=== PATIENT | female | born 1950 | race Caucasian/White ===

== ENCOUNTER 2023-07-26 04:33 | Inpatient (IN) | payer OTHER, SELFPAY ==
[2023-07-25 22:25] VITALS: BP 176/73
[2023-07-25 22:26] VITALS: BMI 17.3
[2023-07-25 22:29] VITALS: BP 176/73
[2023-07-25 23:00] VITALS: BP 172/76
--- NOTE | 2023-07-25 23:29 | ED.GENMED ---
History of Present Illness
General
Chief Complaint: Fall
Source: patient
Exam Limitations: none
Time Seen by Provider: 07/25/23 23:20
Travel History
Have you had any contact with someone who has COVID-19?: No
Do you have any symptoms of coronavirus? Fever > 100 degrees, chills, cough, shortness of breath, sore throat, loss of taste or smell, muscle aches, or headache?: No
History of Present Illness
History of Present Illness:
This is a 72 year old female that is brought in by ambulance with c/o fall. States that she was walking with her walker and she lost her balance states that she fell backward hitting her left hip. States that she did hit her head but there was no
LOC. States that she has pain in the left hip. Denies any fever, chills, chest pain, SOB, abd pain, nausea, vomiting, diarrhea, headache, dizziness. or urinary burning.
Past History
Past History
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
ED Past Surgical History: Cholecystectomy and Other (Colostomy to Ileostomy)
Social History
Tobacco: Non-smoker
Alcohol: None
Drug: None
Personal:
Living: with family
Review of Systems
Review of Systems
All Other Systems: ROS reviewed and negative except as documented in HPI and ROS
Constitutional: Reports no symptoms; Denies fever or chills
EENT: Reports no symptoms
Respiratory: Reports no symptoms; Denies cough or trouble breathing
Cardiac: Reports no symptoms; Denies chest pain
ABD/GI: Reports no symptoms; Denies abdominal pain, nausea, vomiting or diarrhea
: Reports no symptoms; Denies dysuria, frequency or urgency
Musculoskeletal: Reports joint pain (Left hip pain)
Skin: Reports other (abrasion left elbow)
Neurological: Reports no symptoms; Denies dizzy or headache
Psychiatric: Reports no symptoms
Phy Exam
General Physical Exam
General Presentation: mild distress
General age: appears stated age
General Skin: warm and dry
General Habitus: elderly
General Mental: alert
General Hydration: dry mucous membranes
ENT Exam
ENT Exam: TM's normal, pharynx normal and neck supple
Eye Exam
Eye Exam: EOMI
Cardiovascular Exam
Cardiovascular Exam: regular rate/rhythm, no edema and normal peripheral pulses
Pulmonary Exam
Pulmonary Exam: lungs clear, no respiratory distress, no rales, chest non tender, no crackles, no rhonchi, no wheezing and no cough
Gastrointestinal Exam
Gastrointestinal Exam: normal bowel sounds, non tender, soft, no organomegaly, no pulsatile mass and non distended
External Findings: ileostomy
Musculoskeletal Exam
Musculoskeletal Exam: no edema and other (Left leg shortened and externally rotated. Discomfort with palpation. deformity noted. negative for any cervical neck tenderness or shoulder discomfort. Patient able to flex left elbow without discomfort. )
Skin Exam
Skin Exam: normal color, warm/dry, no rash, no petechia and other (Abrasion to the left elbow)
Psychiatric Exam
Psychiatric Exam: normal mood/affect
Course
Orders/Labs/Results
Orders:
Orders
07/25/23 22:39
CT Head W/o Iv Contrast Urgent
Comment:
Reason For Exam: head strike and on thinners
07/25/23 23:28
Complete Blood Count/With Diff Urgent
Comprehensive Metabolic Panel Urgent
Morphine Sulfate 2 mg IV NOW STA
07/25/23 23:35
Prothrombin Time Urgent
07/26/23 00:00
CR Hip - LT w/wo Pel 2-3 Vw* Urgent
Reason For Exam: fall, left hip pain
Include a pelvis x-ray?: Yes
07/26/23 00:40
Consult Orthopedic [ORTHOPEDIC CONSULT] Urgent
Consulting Provider: Liberty Ortega
Was physician already notified: Yes
Abnormal Lab Results
07/26/23
00:37
WBC 11.7 H 10^3/uL
(4.8-10.8)
RBC 3.42 L 10^6/uL
(4.20-5.40)
Hgb 10.6 L g/dL
(12.0-16.0)
Hct 31.3 L %
(37.0-47.0)
RDW 14.7 H %
(11.5-14.5)
Abs Immat Gran (auto) 0.1 H 10^3/uL
(0-0.05)
Absolute Neuts (auto) 10.8 H 10^3/uL
(1.4-6.5)
Absolute Lymphs (auto) 0.5 L 10^3/uL
(1.2-3.4)
Neutrophils % 92.0 H %
(42.2-75.2)
Lymphocytes % 4.4 L %
(20.5-51.1)
PT 21.8 H Sec
(11.4-14.6)
Potassium 3.2 L mmol/L
(3.5-5.1)
BUN 26 H mg/dl
(7-17)
Glucose 144 H mg/dl
(70-99)
Total Protein 6.0 L g/dl
(6.3-8.2)
Albumin 3.0 L g/dl
(3.5-5.0)
07/26/23 00:37
07/26/23 00:37
Leukocytosis, H/H low. PT 21.8 with INR 1.92, Dehydration. Glucose nonfasting. Total protein low. Albumin low.
Vital Signs
Initial and Last Documented VS:
Initial Vital Signs
BP
176/73
07/25/23 22:25
Last Documented Vital Signs
Temp Pulse Resp BP Pulse Ox
98.6 F 82 21 176/79 97
07/25/23 22:29 07/26/23 01:15 07/26/23 01:15 07/26/23 01:00 07/26/23 01:15
MDM/Problems Addressed
Differential Diagnosis Includes:
Left hip fracture,
MDM/Problems Addressed:
This is a 72 year old female that comes in with c/o fall. States that she lost her balance and fell hitting her hip and head. Denies any LOC.
Will get labs, CT head and x-ray left hip. Will medicate for pain.
Back into see patient and family. Explained that the patient has a left hip fracture and will be admitted. Will sent message to Hospitalist and Orthopedics.
Chronic conditions affecting care: Other (RA, history of CVA on Coumadin)
Acute Exacerbation and/or Progression of Chronic Illness:
NA
*Radiology
Radiology exam reviewed: preliminary read by ED provider (X-ray left hip- Fracture left hip. ), radiology read reviewed (CT head, night Hawk- No acute intracranial abnormality by CT. No acute intracranial hemorhage, evidence of acute large
territorial infarction, mass or mass effect. No identified calvarial fracture. Large old encephalomalacic infarction of the right frontotemporoparietal cerebrum. Corresponding) and other (Ct head cont- Ex vacuo dilation of right lateral ventricle.
Right MCA stenting noted. )
*Pulse Oximetry
Patient hypoxic: no
*Drying Oven Tender Interpretation
Rate: normal
Heart Rate: 91
Rhythm: sinus
*Critical Care Note
Total Time (30-74mins, 75-104mins- exclusive of procedures): Not Applicable
ED Attending Note
-
Portions of this chart may have been created with voice recognition software.� Occasional wrong word or��sound alike� substitutions may have occurred due to the inherent limitations of voice recognition software.
Discharge Plan
Departure
Patient Disposition: Admit
Date of Disposition: 07/26/23
Time of Disposition: 00:40
Admit to: Med/Surg
Presentation/result/management discussed w/ accepting MD/DO: Hospitalist
Patient with high blood pressure during this ER visit?: Yes
Condition: Good
Covid-19: Not Applicable
Discharge Problem:
Closed left hip fracture
Prescriptions:
No Action
acetaminophen [Tylenol Extra Strength] 500 MG tablet
1,000 mg PO HSPRN PRN (Reason: mild pain)
tamsulosin 0.4 MG capsule
0.4 mg PO [id number]
levothyroxine 125 MCG tablet
125 mcg PO DAILY
ascorbic acid (vitamin C) [Vitamin C] 500 MG tablet,chewable
500 mg PO DAILY
calcium carbonate 500 MG/5 ML suspension
500 mg PO DAILY
Referrals:
Henrique Johnson MD [Family Provider] -
Interventions
Interventions:
*Risk Screen - Suicide Last Done: 07/25/23 22:32
*General Assessment Last Done: 07/25/23 22:31
*Neglect/Abuse Screening Last Done: 07/25/23 22:32
ED- Fall Risk Assessment Last Done: 07/25/23 22:33
*ED COVID-19 Vaccine History Last Done: 07/25/23 22:31
ED-Musculoskeletal Assessment Last Done: 07/25/23 22:33
ED- Neurological Assessment Last Done: 07/25/23 22:33
ED-Skin Assessment Last Done: 07/25/23 22:33
[2023-07-26] VITALS (10 sets, daily range): BP systolic 124–179; BP diastolic 69–89; BMI 16.3
[2023-07-26 00:56] LABS: % Basophils 0.3 % (0-2); % Eosinophils 0.3 % (0-6); % Immature Granulocytes 0.4 % (0-0.5); % Lymphocytes 4.4 % (20.5-51.1); % Monocytes 2.6 % (1.7-9.3); Absolute Immature Granulocytes 0.1 10^3/uL (0-0.05); Absolute Lymphocytes 0.5 10^3/uL (1.2-3.4); Absolute Monocytes 0.3 10^3/uL (0.1-0.6); Absolute Neutrophils 10.8 10^3/uL (1.4-6.5); Hematocrit 31.3 % (37.0-47.0); Hemoglobin 10.6 g/dL (12.0-16.0); Mean Corp Hgb Conc. 33.9 g/dL (33.0-37.0); Mean Corpuscular Volume 91.5 fL (81.0-99.0); Mean Platelet Volume 9.3 fL (7.4-10.4); Nucleated Red Blood Cells % 0 %; Platelet Count 343 10^3/uL (130-400); Red Blood Cell Count 3.42 10^6/uL (4.20-5.40); Red Cell Dist. Width 14.7 % (11.5-14.5); White Blood Cell Count 11.7 10^3/uL (4.8-10.8)
[2023-07-26 01:08] LABS: INR 1.92; PT 21.8 Sec (11.4-14.6)
[2023-07-26 01:12] LABS: ALT (SGPT) 16 U/L (0-35); AST (SGOT) 29 U/L (14-36); Alkaline Phosphatase 126 U/L (38-126); Blood Urea Nitrogen 26 mg/dl (7-17); Carbon Dioxide 29 mmol/L (22-30); Chloride 101 mmol/L (98-107); Estimated Creatinine Clearance 45 ml/min; Glucose 144 mg/dl (70-99); Potassium 3.2 mmol/L (3.5-5.1); Sodium 137 mmol/L (135-145); Total Bilirubin 0.7 mg/dl (0.2-1.3); eGFR > 60.00
[2023-07-26] MEDS: MORPHINE SULFATE 2 MG IV (01:16)
--- NOTE | 2023-07-26 04:21 | HPS.HSE ---
Family Physician
-
Family Physician: Henrique Johnson
Chief Complaint
-
fall, left hip pain
History of Present Illness
The patient is a 72 yo woman with PMH significant for remote CVA with contractures and left sided weakness, who was walking with her walker and lost balance and fell backwards, hitting her left hip that resulted in left hip fracture. She hit her
head as well, without LOC. She denies any pulmonary disease. She takes
Medical History
Past Medical History
Past Medical History: Reports CVA (hemiplegia and hemiparesis affecting left non-dominant side), Hypercholesterolemia, Hypothyroidism and Other (Antiphospholipid antibody on long-term AC with Coumadin, RA multiple sites affected)
Past Surgical History: Reports Other (right MCA stenting)
Social History
Tobacco: Non-smoker
Alcohol: None
Drug: None
Family History
Family History: Not pertinent
Allergies / Home Medications
Allergies reflects when Allergies were last updated in [facility].
Home Medications with original date entered in [facility]
Allergy/Medication List:
Allergies
Allergy/AdvReac Type Severity Reaction Status Date / Time
No Known Allergies Allergy Verified 09/16/20 11:14
Home Medications
acetaminophen 500 mg tablet (Tylenol Extra Strength) 1,000 mg PO HSPRN PRN mild pain 09/16/20
ascorbic acid (vitamin C) 500 mg chewable tablet (Vitamin C) 500 mg PO DAILY 09/16/20
calcium carbonate 500 mg/5 mL calcium (1,250 mg/5 mL) oral suspension 500 mg PO DAILY 09/16/20
levothyroxine 125 mcg tablet 125 mcg PO DAILY 09/16/20
tamsulosin 0.4 mg capsule 0.4 mg PO [id number] 09/16/20
Full Current Med rec is pending at this time
Review of Systems
-
A 12 point ROS was completed and negative except as noted: Yes
Physical Exam
Vital Signs
Vital Signs
Temp Pulse Resp BP Pulse Ox
98.6 F 82 21 176/79 97
07/25/23 22:29 07/26/23 01:15 07/26/23 01:15 07/26/23 01:00 07/26/23 01:15
Physical Exam
General: No Apparent Distress, Comfortable, Conversant and Appears Chronically Ill
HEENT: NormoCephalic, Anicteric and Moist mucous membranes
Respiratory: Clear
Cardiac: S1/S2 and Regular Rhythm
GI: Soft, Non Tender and Non Distended
Musculoskeletal: No Clubbing, No Cyanosis and No Edema
Skin: Warm and Dry
Neuro: AO x 3 and Nonfocal/grossly intact
Laboratory Results
-
07/26/23 00:37
07/26/23 00:37
Laboratory Results
PT 21.8 Sec (11.4-14.6) H 07/26/23 00:37
INR 1.92 07/26/23 00:37
Total Bilirubin 0.7 mg/dl (0.2-1.3) 07/26/23 00:37
AST 29 U/L (14-36) 07/26/23 00:37
ALT 16 U/L (0-35) 07/26/23 00:37
Alkaline Phosphatase 126 U/L (38-126) 07/26/23 00:37
Data Reviewed
-
CT Scan: Report Reviewed by me (CT head NAD)
Impression/Plan
-
IMPRESSION:
#Left hip fracture, left hip pain
-pt ambulates with walker
-bedrest for now
-NPO
-Ortho consulted
-check EKG
-pain management prn
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
-stable , no acute bleed nor stroke
#Antiphospholipid antibody
-Coumadin on hold pending OR
-repeat INR in am
#She will require med rec in the am
DNR per discussion with the patient
DVT proph-holding anticoagulation for likely surgery in the am
[2023-07-26] MEDS: NSS 1000 IV ×2 (05:52→16:02)
--- NOTE | 2023-07-26 06:02 | PTCARENOTE ---
Pt received from ED via stretcher. Pulled over to bed x3 without incident. Telemetry = SR. Oriented to surroundings and plan of care discussed. Admission and assessment completed. L elbow with abrasion, cleansed and silicone border foam
applied. Sacrum/buttocks reddened (blanchable). Turned for comfort and static overlay mattress inflated. R calf with large mass, pt reports recently drained and filled back up. [employer] covering house contacted regarding application of SCDs, order
changed to venous foot pumps. Purewick in place. L sided weakness/hand contracture present from previous CVA. Reports pain as tolerable at present. Call li within reach. Will continue to closely monitor.
[2023-07-26 06:21] LABS: INR 1.92; PT 21.8 Sec (11.4-14.6)
--- NOTE | 2023-07-26 06:42 | CON.ORTHO ---
Documented by User: Jese Garcia PA-C 07/26/23 07:24
Consultation
-
Date/Time Consultation Requested: 07/26/2023 @ 5:20 AM
Date/Time Consultation Performed: 07/26/2023 @ 6:15 AM
Requesting Provider: Dr. Tiny Celestin DO
Performing Provider: Jese Garcia PA-C for Dr. Liberty Ortega
Reason for Consultation: Left Hip Fracture
Consultation - Orthopedics
History
HPI: The patient is a 72-year-old female with a past medical history significant for remote CVA in 2010 with contractures and left-sided weakness, Antiphospholipid antibody on long-term AC with Coumadin (last dose yesterday evening 07/25), and
recently diagnosed bilateral breast cancer, who presents to [facility] Emergency Department with left hip pain. Patient reports that she was walking with her walker to go to the bathroom around 9 PM yesterday evening and unfortunately lost
her balance and fell backwards landing on her left hip. She reports immediate onset of left hip pain and was unable to get up from the floor. She reports that she did hit her head, but denies any LOC or prodrome. Patient was transferred to ED by
EMS. X-rays were obtained, revealing a left hip fracture. Currently, she is resting in bed and does report some mild pain to the left hip. She has pain with movement. She denies any pain elsewhere. She denies any other injuries. She denies any
loss of consciousness from the fall. Patient lives at home with her in a two-story home.
PAST MEDICAL HISTORY: CVA (hemiplegia and hemiparesis affecting left nondominant side), hypercholesterolemia, hypothyroidism, antiphospholipid antibody on long-term AC with Coumadin, RA (multiple sites affected).
PAST SURGICAL HISTORY: Right MCA stenting, GI (Ostomy).
SOCIAL HISTORY: Denies any tobacco use, alcohol use, or recreational/illicit drug use. Lives at home with her in a two-story home. Patient and her report that she is fully ambulatory, however does occasionally utilize a walker.
FAMILY HISTORY: Non-contributory.
REVIEW OF SYSTEMS: 12-point review of systems obtained and negative except those mentioned in the HPI.
Allergies / Home Medications
Allergy/AdvReac Type Severity Reaction Status Date / Time
No Known Allergies Allergy Verified 09/16/20 11:14
Medication Instructions Recorded
acetaminophen 500 mg tablet 1,000 mg PO HSPRN PRN mild pain 09/16/20
(Tylenol Extra Strength)
ascorbic acid (vitamin C) 500 mg 500 mg PO DAILY 09/16/20
chewable tablet (Vitamin C)
calcium carbonate 500 mg/5 mL 500 mg PO DAILY 09/16/20
calcium (1,250 mg/5 mL) oral
suspension
levothyroxine 125 mcg tablet 125 mcg PO DAILY 09/16/20
tamsulosin 0.4 mg capsule 0.4 mg PO [id number] 09/16/20
Vital Signs / Lab Results
Temp Pulse Resp BP Pulse Ox
97.6 F 80 16 179/89 99
07/26/23 05:39 07/26/23 05:39 07/26/23 05:39 07/26/23 05:39 07/26/23 06:24
07/26/23 00:37
07/26/23 00:37
RADIOGRAPHIC FINDINGS:
CR Hip - LT w/wo Pel 2-3 Vw was obtained at [facility] on 07/26/2023 and was made available for my review. No radiologist report is yet available. I note a left intertrochanteric hip fracture.
PHYSICAL EXAM:
General: Well-developed, well-nourished female in no acute distress. AAOx3.
HEENT: NCAT, sclera anicteric, normal conversational hearing.
HEART: No JVD. No LE edema.
Lungs: Normal work of breathing on room air.
MSK: Focused examination of the left lower extremity reveals leg shortened and externally rotated. Positive logroll. Positive tenderness to palpation over the left hip. Range of motion deferred secondary to known fracture. Able to plantarflex
and dorsiflex the left ankle. Patient is able to wiggle toes. Sensation is intact to light touch. Patient is neurovascularly intact distally.
Assessment / Plan
ASSESSMENT: 72-year-old female with a left intertrochanteric hip fracture.
PLAN: Unfortunately, the patient has sustained a left intertrochanteric hip fracture following a mechanical fall yesterday evening. We discussed the treatment options including both non-operative and operative approaches. After thorough discussion,
shared decision is to proceed with surgical intervention with a left hip gamma nail. The risks, benefits, potential complications, and expected post-operative course were reviewed. Surgical and blood consents were obtained placed into her chart.
We will plan for OR later today with left hip gamma nail fixation under the direction of Dr. Ortega PENDING repeat INR. Patient is on Coumadin, last dose yesterday evening, and INR upon arrival was 1.92. She is currently receiving vitamin K and
FFP. We will plan to repeat INR after FFP. As long as INR is less than 1.5, we will proceed with surgical intervention today. Patient to remain NPO. Full left femur x-rays pending. She is to remain nonweightbearing to the left lower extremity
until postop. Preoperative antibiotics, irrigation, and TXA irrigation on-call to the OR. Left hip marked as the correct surgical extremity. Continue with pain management as needed. All of her questions were answered. We will continue to follow
along.

Documented by User: Liberty Ortega DO 07/26/23 13:28
Consultation - Orthopedics
Assessment / Plan
ASSESSMENT: 72-year-old female with a left intertrochanteric hip fracture.
PLAN: Unfortunately, the patient has sustained a left intertrochanteric hip fracture following a mechanical fall yesterday evening. We discussed the treatment options including both non-operative and operative approaches. After thorough discussion,
shared decision is to proceed with surgical intervention with a left hip gamma nail. The risks, benefits, potential complications, and expected post-operative course were reviewed. Surgical and blood consents were obtained placed into her chart.
We will plan for OR later today with left hip gamma nail fixation under the direction of Dr. Ortega PENDING repeat INR. Patient is on Coumadin, last dose yesterday evening, and INR upon arrival was 1.92. She is currently receiving vitamin K and
FFP. We will plan to repeat INR after FFP. As long as INR is less than 1.5, we will proceed with surgical intervention today. Patient to remain NPO. Full left femur x-rays pending. She is to remain nonweightbearing to the left lower extremity
until postop. Preoperative antibiotics, irrigation, and TXA irrigation on-call to the OR. Continue with pain management as needed. All of her questions were answered. We will continue to follow along.
[2023-07-26] MEDS: AQUAMEPHYTON 50.5 MG IV (07:11)
[2023-07-26 08:03] LABS: Hepatitis C Antibody Negative (Negative)
[2023-07-26] MEDS: TYLENOL 650 MG PO ×4 (08:43→20:36)
[2023-07-26] MEDS: KCL 270 MEQ IV (10:11)
[2023-07-26 11:24] LABS: INR 1.61; PT 18.9 Sec (11.4-14.6)
[2023-07-26] MEDS: ROXICODONE 5 MG PO ×2 (12:04→20:40)
--- NOTE | 2023-07-26 12:40 | W.PN.HOSP.TC ---
Today's Communication/Plan
-
monitor INR
tentative�left hip gamma nail fixation tomorrow
Assessment / Plan
Assessment / Plan
Physical Exam
General: No Apparent Distress, Comfortable, Conversant and Appears Chronically Ill
HEENT: NormoCephalic, Anicteric and Moist mucous membranes
Respiratory: Clear
Cardiac: S1/S2 and Regular Rhythm
GI: Soft, Non Tender and Non Distended
Musculoskeletal: No Clubbing, No Cyanosis and No Edema
Skin: Warm and Dry
Neuro: AO x 3 and Nonfocal/grossly intact
IMPRESSION:
#Left hip fracture, left hip pain
-pt ambulates with walker
-bedrest for now
-Plan for surgery tomorrow (�left hip gamma nail fixation), if INR okay
-Ortho consulted
-check EKG
-pain management prn
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
-stable , no acute bleed nor stroke
#Leukocytosis
-most likely reactive with stress
-ctm
#Hypokalemia
-monitor and replete
#Antiphospholipid antibody
-Coumadin on hold pending OR
-repeat INR in am
#med rec
DNR per discussion with the patient
DVT proph-holding anticoagulation for tentative surgery
Anticipated Discharge: > 48 hours
Subjective/Interval History
-
Date of Service: July 26, 2023
INR is still relatively high presurgery. Plan for surgery tentatively tomorrow
Objective Data
-
Labs:
Laboratory Results
07/26/23 07/26/23 07/26/23
00:37 05:53 07:30
WBC 11.7 H
Hgb 10.6 L
Hct 31.3 L
Plt Count 343
PT 21.8 H 21.8 H Cancelled
INR 1.92 1.92 Cancelled
Sodium 137
Potassium 3.2 L
Chloride 101
Carbon Dioxide 29
BUN 26 H
Creatinine 0.9
Glucose 144 H
Calcium 9.0
Total Bilirubin 0.7
AST 29
ALT 16
Alkaline Phosphatase 126
07/26/23 07/26/23
10:30 10:51
WBC
Hgb
Hct
Plt Count
PT Cancelled 18.9 H
INR Cancelled 1.61
Sodium
Potassium
Chloride
Carbon Dioxide
BUN
Creatinine
Glucose
Calcium
Total Bilirubin
AST
ALT
Alkaline Phosphatase
Vital Signs:
Vital Signs
Temp Pulse Resp BP Pulse Ox
98.6 F 74 15 124/69 98
07/26/23 12:14 07/26/23 12:14 07/26/23 12:14 07/26/23 12:14 07/26/23 12:14
I&O
07/25/23 07/26/23 07/27/23
06:59 06:59 06:59
Intake Total 317 / 317
Balance 317 / 317
Review of Systems
-
History Source: Patient
All other systems: Not reviewed unless documented
Data Reviewed
-
Diagnostic Radiology: Image personally visualized and interpreted and Report Reviewed by me
CT Scan: Image personally visualized and interpreted and Report Reviewed by me
Labs: Labs Reviewed by me
--- NOTE | 2023-07-26 12:46 | CM ---
Reviewed the chart notes and spoke with the patient at the bedside. The patient resides with her spouse in a two story home with one step to enter. The patient has a shower chair and stair glide in the home. The patient has had VN in past, but
could not recall the name of the agency, no SNF. The patient confirmed her pharmacy of choice is [facility]. The patient's discharge plan will most likely be to a SNF/rehab prior to transitioning back to home. CM continues to be available to
patient/family and is monitoring medical plan for needs at discharge.
Plan: SNF/rehab once medically stable.
--- NOTE | 2023-07-26 20:05 | PTCARENOTE ---
Pt's daughter called to update medication list w/doses. Med Rec completed.
[2023-07-26] MEDS: COLACE 100 MG PO (20:37)
[2023-07-26] MEDS: SENOKOT 17.1999999999999993 MG PO (20:37)
[2023-07-26 21:37] LABS: INR 1.49; PT 17.8 Sec (11.4-14.6)
--- NOTE | 2023-07-26 23:34 | W.PN.UPDATE ---
Update Note
Progress Note Update
OR planned tomorrow ~[address] Ortega for LEFT hip ORIF. Repeat INR this evening drifted to 1.49. Will recheck in AM- as long as it remains <1.50 planned surgery will proceed, barring anything unforeseen. Will follow
[2023-07-27] VITALS (12 sets, daily range): BP systolic 134–170; BP diastolic 63–80
[2023-07-27] MEDS: TYLENOL PO ×3 (00:48→18:24)
[2023-07-27] MEDS: NSS 1000 IV ×2 (01:00→10:36)
--- NOTE | 2023-07-27 05:29 | PTCARENOTE ---
Complete bed bath, linen change, and 1st set of CHG cloths used preop.
[2023-07-27 06:20] LABS: Hematocrit 28.6 % (37.0-47.0); Hemoglobin 9.5 g/dL (12.0-16.0); Mean Corp Hgb Conc. 33.2 g/dL (33.0-37.0); Mean Corpuscular Hgb 30.4 pg (27.0-31.0); Mean Corpuscular Volume 91.4 fL (81.0-99.0); Mean Platelet Volume 9.4 fL (7.4-10.4); Platelet Count 261 10^3/uL (130-400); Red Blood Cell Count 3.13 10^6/uL (4.20-5.40); Red Cell Dist. Width 14.9 % (11.5-14.5); White Blood Cell Count 6.6 10^3/uL (4.8-10.8)
[2023-07-27 06:27] LABS: INR 1.37; PT 16.6 Sec (11.4-14.6)
[2023-07-27 06:42] LABS: Blood Urea Nitrogen 17 mg/dl (7-17); Calcium 8.2 mg/dl (8.4-10.2); Carbon Dioxide 29 mmol/L (22-30); Chloride 108 mmol/L (98-107); Estimated Creatinine Clearance 54 ml/min; Glucose 89 mg/dl (70-99); Magnesium 1.8 mg/dl (1.6-2.3); Potassium 3.8 mmol/L (3.5-5.1); Sodium 136 mmol/L (135-145); eGFR > 60.00
--- NOTE | 2023-07-27 07:04 | W.PN.UPDATE ---
Update Note
Progress Note Update
INR 1.37 this am so clear to proceed with L hip ORIF later today. L hip pain bearable and DNVI. Remain NPO and ABX fashion marketer the OR.
[2023-07-27] MEDS: TYLENOL 650 MG PO ×3 (08:25→19:21)
[2023-07-27] MEDS: COLACE 100 MG PO ×2 (08:25→19:21)
[2023-07-27] MEDS: SENOKOT 17.1999999999999993 MG PO ×2 (08:25→19:22)
--- NOTE | 2023-07-27 14:01 | CM ---
Chart reviewed
Pt planned for OR today - Left hip ORIF
CM will follow for needs post op
Plan - tbd pending PT/OT eval post op
--- NOTE | 2023-07-27 14:37 | W.PN.HOSP.TC ---
Today's Communication/Plan
-
Planning for ORIF today
Assessment / Plan
Assessment / Plan
Physical Exam
General: No Apparent Distress, Comfortable, Conversant and Appears Chronically Ill
HEENT: NormoCephalic, Anicteric and Moist mucous membranes
Respiratory: Clear
Cardiac: S1/S2 and Regular Rhythm
GI: Soft, Non Tender and Non Distended
Musculoskeletal: No Clubbing, No Cyanosis and No Edema
Skin: Warm and Dry
Neuro: AO x 3 and Nonfocal/grossly intact
IMPRESSION:
#Left hip fracture, left hip pain
-pt ambulates with walker
-bedrest for now
-Plan for surgery today (�left hip gamma nail fixation)
-Ortho consulted
-check EKG
-pain management prn
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
-stable , no acute bleed nor stroke
#Leukocytosis
-most likely reactive with stress
-ctm
-resolved
#Hypokalemia
-monitor and replete
#Antiphospholipid antibody
-Coumadin on hold pending OR
-repeat INR in am
#med rec
DNR per discussion with the patient
DVT proph-holding anticoagulation for tentative surgery
Anticipated Discharge: 24 - 48 hours
Subjective/Interval History
-
Date of Service: July 27, 2023
No acute events
Objective Data
-
Labs:
Laboratory Results
07/27/23
05:05
WBC 6.6
Hgb 9.5 L
Hct 28.6 L
Plt Count 261 D
PT 16.6 H
INR 1.37
Sodium 136
Potassium 3.8
Chloride 108 H
Carbon Dioxide 29
BUN 17
Creatinine 0.7
Glucose 89
Calcium 8.2 L
Vital Signs:
Vital Signs
Temp Pulse Resp BP Pulse Ox
97.5 F 78 16 161/75 99
07/27/23 11:45 07/27/23 11:45 07/27/23 11:45 07/27/23 11:45 07/27/23 11:45
I&O
07/26/23 07/27/23 07/28/23
06:59 06:59 06:59
Intake Total 1996
Output Total 400 / 400
Balance 1597 / 1597
Review of Systems
-
History Source: Patient
All other systems: Not reviewed unless documented
Data Reviewed
-
Diagnostic Radiology: Image personally visualized and interpreted and Report Reviewed by me
CT Scan: Image personally visualized and interpreted and Report Reviewed by me
Labs: Labs Reviewed by me
--- NOTE | 2023-07-27 16:58 | W.PN.UPDATE ---
Update Note
Progress Note Update
Orthopedic Surgery Post-op Note:
Patient is status post left femur intramedullary nailing for her left intratrochanteric femur fracture. Waking up from anesthesia, moving feet. She may WBAT. Ok to restart anticoagulation. Pain control, PT/OT. SCDs. Post-op abx. Will continue to
follow.
Liberty Ortega DO
Orthopedic Surgery
--- NOTE | 2023-07-27 18:16 | PTCARENOTE ---
Pt arrived to [facility] from PACU s/p L hip gamma nail. Pt has 3 aquacel dressing on her left lateral hip/knee, all C/D/I. NV intact. Pt IVF infusing. Pt states no pain at this time. Pt re-oriented to call li and room, bed locked and in lowest
position, call li within reach.
[2023-07-27] MEDS: NSS IV (18:22)
[2023-07-27] MEDS: COUMADIN 5 MG PO (19:20)
--- NOTE | 2023-07-27 20:02 | PTCARENOTE ---
Pt received from previous shift in bed. AAOx3, eating dinner. Telemetry = SR. Full physical assessment as documented (refer to worklist). Pt verbalizes need to void, requesting purewick. Explained that mobility is encouraged and should get up
to BSC at minimum. Pt apprehensive but agreeable. Pt very unsteady, hunched over, unable to straighten to stand. Assisted x2 to BSC with max assist. Pt unable to utilize walker 2/2 L hemiparesis, absent hand grasp. Pt voided 300 mL yellow
urine. Bright red blood noted on toilet paper when wiping, fiona area assessed, no open areas appreciated. ? vaginal discharge. IVF infusing without complication. Turned and positioned for comfort. Call li within reach. Will continue to
closely monitor.
--- NOTE | 2023-07-27 21:31 | OR.RPT ---
Operative Report
Operative Report
Orthopedic Surgery Operative Report
Date of Surgery: 07/27/23
PREOPERATIVE DIAGNOSES:
1. Left intertrochanteric femoral neck fracture
POSTOPERATIVE DIAGNOSES:
1. Left intertrochanteric femoral neck fracture
PROCEDURE PERFORMED:
1. Left hip intramedullary nailing
SURGEON: Liberty Ortega D.O.
BODY SHOP SUPERVISOR: None
ANESTHESIA: General
COMPLICATIONS: None
ESTIMATED BLOOD LOSS: 50 cc
DRAINS: None
SPECIMEN: None
IMPLANTS:
All [employer] Implants-
[id number] Left Gamma Nail
[id number] lag screw
5.0x45mm screw
INDICATION FOR SURGERY: Patient is a 72-year-old female who recently took a fall. Imaging in the hospital demonstrated a left intertrochanteric femoral neck fracture. All operative and nonoperative treatment options were discussed with the patient
and a decision was made to proceed with surgery once she was medically optimized. The risks, benefits, alternatives, and indications were discussed with the patient in detail. The risks include, but are not limited to bleeding requiring transfusion,
infection, need for reoperation, nerve or blood vessel damage, anesthetic risks, need for further surgery, continued pain, blood clots in the legs, heart attack, stroke, , neurovascular injury, malunion, nonunion, continued pain, numbness,
weakness. The patient understands the risks and elected to proceed. Informed consent was obtained preoperatively.
PROCEDURE IN DETAIL: The patient was identified in the preoperative holding area. The surgical site was appropriately marked. The patient was then brought to the operating room. General anesthesia was achieved. The patient was then appropriately
positioned on the fracture table. The fracture was reduced by manipulating the limb on the fracture table under fluoroscopic guidance. The patient was given routine preoperative intravenous antibiotics. The patient was prepped and draped in the
usual sterile manner. A preoperative surgical time-out was taken and the procedure was initiated.
The greater trochanter was marked using fluoroscopy. An incision was made along the lateral hip proximal to the greater trochanter. A guidewire was then advanced under fluoroscopic guidance to gain an appropriate entry point at the greater
trochanter. Once the guidewire was placed, an opening reamer was used to gain entry into the femur. The guidewire was removed and a ball-tipped guidewire was inserted into the femur. The position of the guidewire was confirmed both with tactile
feel and with fluoroscopy. Appropriate position of the guidewire in the distal femur was confirmed on fluoroscopy. A measurement was taken for an appropriately sized nail under fluoroscopic guidance. The femur was then sequentially reamed. Next,
a size 10 x 380 nail was inserted into the femur under fluoroscopic guidance. The ball-tipped guide wire was removed. Attention was then turned towards lag screw placement. The lag screw attachment was placed on the jig. An incision was made at
the lateral thigh to advance the lag screw attachment to the lateral femur. The lag screw guidewire was then introduced into the femoral neck under fluoroscopic guidance. Once appropriate position of the guidewire was confirmed, a measurement was
taken. The femoral neck was then drilled over top the guidewire and the appropriately sized lag screw was placed under fluoroscopic guidance. Traction was removed. Compression was performed through the lag screw. The set-screw of the nail was
placed to lock the nail to the lag screw. The lag screw attachment and guide wire were removed. Attention was then turned towards placement of the distal interlocking screws. A distal interlocking screw was placed using perfect-circles fluoroscopy
technique. The jig was then removed and all wounds were copiously irrigated. Final x-rays were obtained. The wounds were closed in layered fashion using vicryl suture. Glenn were applied at the skin. Dressings were applied to all incision
sites. Patient tolerated the procedure well with no immediate complications. All counts were correct at the end of the surgery.
Liberty Ortega D.O.
Orthopedic Surgery
[2023-07-27] MEDS: ANCEF 5 IV (22:32)
[2023-07-28] VITALS (7 sets, daily range): BP systolic 117–138; BP diastolic 58–71; PULSE 80–84; O2SAT 99–100
[2023-07-28] MEDS: NSS 1000 IV (02:58)
[2023-07-28] MEDS: ANCEF 5 IV (04:51)
[2023-07-28] MEDS: TYLENOL 650 MG PO ×6 (04:51→21:11)
--- NOTE | 2023-07-28 06:01 | W.PN.ORTHO ---
Today's Communication / Plan
-
72-year-old female postop day #1 from left gamma nail fixation for left intertrochanteric hip fracture performed on 07/27/[address] Ortega.
- WBAT to LLE with use of walker for assistance.
- PT/OT
- Okay to restart anticoagulation from orthopedic surgery standpoint.
- Pain control per primary team.
- Hemoglobin this AM 7.9. TT sent to primary team who is aware and will continue to monitor.
- Discharge planning per case management.
- Orthopedic surgery continue to follow along at this time.
Assessment
.
Distal Motor Intact: Yes
Dressing:
Clean, dry and intact.
Assessment:
Postop day #1 left gamma nail fixation for left intertrochanteric hip fracture.
Plan
.
Surgery / Date: 07/27/[address] Ortega.
DVT Prophylaxis: Coumadin
Activity:
Out of bed.
PT/OT
Discharge Information:
Per CM.
Subjective
.
.:
Patient resting comfortably.
Vital Signs and Labs
.
Vital Signs and Labs:
Temp Pulse Resp BP Pulse Ox
98.1 F 66 18 138/67 99
07/28/23 03:25 07/28/23 03:25 07/28/23 03:25 07/28/23 03:25 07/28/23 03:25
PT 16.6 Sec (11.4-14.6) H 07/27/23 05:05
INR 1.37 07/27/23 05:05
Physical Exam
-
Physical examination of the left lower extremity, with attention to the left hip reveals Aquacel dressings to be clean, dry, and intact. No erythema, significant warmth, or ecchymosis noted. Mild tenderness to palpation about the left hip. Thigh
is soft and compressible. Calf is soft and nontender. Patient is able to perform active dorsiflexion and plantarflexion of her left ankle. Sensation is intact light touch. Capillary refills less than 2 seconds. Patient is neurovascularly intact
distally.
[2023-07-28 06:23] LABS: Hematocrit 24.4 % (37.0-47.0); Hemoglobin 7.9 g/dL (12.0-16.0); Mean Corp Hgb Conc. 32.4 g/dL (33.0-37.0); Mean Corpuscular Hgb 30.5 pg (27.0-31.0); Mean Corpuscular Volume 94.2 fL (81.0-99.0); Mean Platelet Volume 9.6 fL (7.4-10.4); Platelet Count 270 10^3/uL (130-400); Red Blood Cell Count 2.59 10^6/uL (4.20-5.40); Red Cell Dist. Width 14.6 % (11.5-14.5); White Blood Cell Count 9.1 10^3/uL (4.8-10.8)
[2023-07-28 06:28] LABS: INR 1.55; PT 18.4 Sec (11.4-14.6)
[2023-07-28 07:01] LABS: Blood Urea Nitrogen 36 mg/dl (7-17); Calcium 8.4 mg/dl (8.4-10.2); Carbon Dioxide 26 mmol/L (22-30); Chloride 105 mmol/L (98-107); Estimated Creatinine Clearance 38 ml/min; Glucose 127 mg/dl (70-99); Potassium 3.9 mmol/L (3.5-5.1); Sodium 138 mmol/L (135-145); eGFR 59.12
[2023-07-28] MEDS: COLACE 100 MG PO ×2 (09:41→21:11)
[2023-07-28] MEDS: SENOKOT 17.1999999999999993 MG PO ×2 (09:41→21:11)
[2023-07-28] MEDS: ROXICODONE 10 MG PO ×2 (09:44→17:00)
--- NOTE | 2023-07-28 12:45 | CM ---
Chart reviewed. Spoke with pt and family at bedside
PT/OT recommending SNF
Obtained choices from pt and family
[facility], [facility]
Referral sent in [facility]
Plan - d/c to SNF - TBD when medically stable
--- NOTE | 2023-07-28 13:35 | W.PN.HOSP.TC ---
Today's Communication/Plan
-
monitor hgb
pt/ot
restart anticoag
Assessment / Plan
Assessment / Plan
Physical Exam
General: No Apparent Distress, Comfortable, Conversant and Appears Chronically Ill
HEENT: NormoCephalic, Anicteric and Moist mucous membranes
Respiratory: Clear
Cardiac: S1/S2 and Regular Rhythm
GI: Soft, Non Tender and Non Distended
Musculoskeletal: No Clubbing, No Cyanosis and No Edema
Skin: Warm and Dry
Neuro: AO x 3 and Nonfocal/grossly intact
IMPRESSION:
#Left hip fracture, left hip pain
-pt ambulates with walker
Left intertrochanteric femur fracture status post intramedullary nailing POD 1
-Ortho consulted
Left lower extremity weight-bear as tolerated
PT OT
SCDs
Okay to restart Coumadin as per ortho
Pain control
Okay to shower postop day 3.� Keep dressings clean and dry
Dressings to be removed on postop day 7
Patient will follow-up with [facility] in 2 weeks postop for staple removal and reevaluation
#Acute blood loss anemia
-most likely 2/2 to recent nailing
-monitor with coumadin
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
-stable , no acute bleed nor stroke
#Leukocytosis
-most likely reactive with stress
-ctm
-resolved
#Hypokalemia
-monitor and replete
#Antiphospholipid antibody
-restart coumadin - monitor hgb
DNR per discussion with the patient
DVT proph-coumadin
Anticipated Discharge: 24 - 48 hours
Subjective/Interval History
-
Date of Service: July 28, 2023
No acute events, hemoglobin dropped to 7.9
Objective Data
-
Labs:
Laboratory Results
07/28/23
05:39
WBC 9.1
Hgb 7.9 L
Hct 24.4 L
Plt Count 270
PT 18.4 H
INR 1.55
Sodium 138
Potassium 3.9
Chloride 105
Carbon Dioxide 26
BUN 36 H
Creatinine 1.0
Glucose 127 H
Calcium 8.4
Vital Signs:
Vital Signs
Temp Pulse Resp BP Pulse Ox
97.6 F 67 14 126/64 99
07/28/23 07:04 07/28/23 07:04 07/28/23 07:04 07/28/23 07:04 07/28/23 08:00
I&O
07/27/23 07/28/23 07/29/23
06:59 06:59 06:59
Intake Total 1996 1600 / 1600
Output Total 400 / 400 1200 / 1200
Balance 1597 / 1597 400 / 400
Review of Systems
-
History Source: Patient
All other systems: Not reviewed unless documented
Data Reviewed
-
Diagnostic Radiology: Image personally visualized and interpreted and Report Reviewed by me
CT Scan: Image personally visualized and interpreted and Report Reviewed by me
Labs: Labs Reviewed by me
[2023-07-28] MEDS: NSS IV (16:14)
[2023-07-28] MEDS: COUMADIN 2.5 MG PO (17:00)
[2023-07-29] MEDS: TYLENOL PO ×2 (01:07→14:39)
[2023-07-29] MEDS: TYLENOL 650 MG PO ×4 (03:37→21:10)
[2023-07-29 03:44] VITALS: BP 168/75
[2023-07-29 06:30] LABS: Hematocrit 24.2 % (37.0-47.0); Hemoglobin 7.8 g/dL (12.0-16.0); Mean Corp Hgb Conc. 32.2 g/dL (33.0-37.0); Mean Corpuscular Hgb 30.6 pg (27.0-31.0); Mean Corpuscular Volume 94.9 fL (81.0-99.0); Mean Platelet Volume 10.1 fL (7.4-10.4); Platelet Count 301 10^3/uL (130-400); Red Blood Cell Count 2.55 10^6/uL (4.20-5.40); Red Cell Dist. Width 15.1 % (11.5-14.5); White Blood Cell Count 8.7 10^3/uL (4.8-10.8)
[2023-07-29 06:56] LABS: Blood Urea Nitrogen 47 mg/dl (7-17); Calcium 8.5 mg/dl (8.4-10.2); Carbon Dioxide 26 mmol/L (22-30); Chloride 102 mmol/L (98-107); Estimated Creatinine Clearance 32 ml/min; Glucose 85 mg/dl (70-99); Potassium 3.9 mmol/L (3.5-5.1); Sodium 136 mmol/L (135-145)
[2023-07-29 07:30] VITALS: BP 157/66
[2023-07-29 09:09] LABS: INR 2.47; PT 26.6 Sec (11.4-14.6)
--- NOTE | 2023-07-29 09:19 | W.PN.ORTHO ---
Documented by User: Baldemar Jimenez PA-C 07/29/23 09:24
Today's Communication / Plan
-
Appreciate the Hospitalists in the management of this surgical patient, continue Tx
Dispo likely SNF, appreciate CM
Continue WBAT LLE on walker/assistance
PT/OT
Maintenance Coumadin, per primary team (INR 2.47 today)
Dressings to remain 10 days
[facility] out at 2 weeks (SNF)
Outpatient follow-up with Ortho 4 weeks
Assessment
.
Distal Motor Intact: Yes
Dressing:
Clean, dry and intact. Mild strikethrough in middle aquacel, contained
Assessment:
POD#2 Left CMN
Overall doing/feeling well
Calf soft, nontender
Plan
.
Surgery / Date: Left CMN Aug 06 ([facility])
DVT Prophylaxis: Coumadin
Activity:
Out of bed. WBAT LLE on walker/assistance
PT/OT
Discharge Plan: SNF
Subjective
.
.:
Patient resting comfortably. No significant left hip pain
Vital Signs and Labs
.
Vital Signs and Labs:
Lab Results
07/29/23 04:10
07/29/23 04:10
Temp Pulse Resp BP Pulse Ox
97.8 F 67 17 157/66 98
07/29/23 07:30 07/29/23 07:30 07/29/23 07:30 07/29/23 07:30 07/29/23 07:30
PT 26.6 Sec (11.4-14.6) H 07/29/23 08:49
INR 2.47 07/29/23 08:49

Documented by User: Liberty Ortega DO 07/29/23 11:24
Today's Communication / Plan
-
Appreciate the Hospitalists in the management of this surgical patient, continue Tx
Dispo likely SNF, appreciate CM
Continue WBAT LLE on walker/assistance
PT/OT
Maintenance Coumadin, per primary team (INR 2.47 today)
Dressings to remain 7 days
[facility] out at 2 weeks
Outpatient follow-up with Ortho in 2 weeks
[2023-07-29] MEDS: SENOKOT 17.1999999999999993 MG PO ×2 (10:47→21:10)
[2023-07-29] MEDS: COLACE 100 MG PO ×2 (10:48→21:10)
[2023-07-29] MEDS: LR 1000 IV ×2 (10:57→14:39)
--- NOTE | 2023-07-29 10:59 | PN.CDI ---
CDI
- -
CDI:
Physician Documentation Request
Admit Date: 07/26/23 04:33
Dear Doctor Dmitry,
Please review the following and provide your response in the progress notes.
Clinical Indicators:
Pt admitted for left intertrochanteric femur fracture
Documented per nutrition consult 07/26, ' consult: wt loss and BMI of 16.3... As per current clinical data pt indciated wt loss of greater than 33lbs but denied eating poorly. Per pt she ahs lost over 80lbs. Wt loss began after her stroke in October of
2010...CBW reflects a 75lbs wt loss or 41% change in wt in 12 years and 9 months. Pt was observed with temporal depression, protruding clavicle, depleted buccal area and hollow orbital. Pt reports to rd that her appetite was decreased up until 1
month ago when her doctor put her on a med that helped increase or intake. Pt meets ASPEN and AND criteria for severe protein calorie malnutrition of chronic illness.'
Based on the information, which of the following most accurately represents the patient's nutritional status?
Severe Protein Calorie Malnutrition
Other (please specify)
Unable to determine
[place] Criteria (ACP Hospitalist 2017)
2 or more criteria must be present for either
non severe or severe malnutrition
Note that the criteria differs related to the
presence of an acute or chronic illness
Acute Illness Chronic Illness
Energy Intake Non Severe: <75% for >7 days Non Severe: <75% for >1 month
Severe: <50% for >5 days Severe: <75% for >1 month
Weight Loss Non Severe: 1-2% over 1 week Non Severe: 5% over 1 month
5% over 1 month 7.5% over 3 months
7.5% over 3 months 10% over 6 months
1 year N/A 20% over 1 year
Severe: >2% over 1 week Severe: >5% over 1 month
>5% over 1 month >7.5% over 3 months
>7.5% over 3 months >10% over 6 months
1 year N/A >20% over 1 year
Body Fat Non Severe: Mild Decrease Non Severe: Mild Loss
Severe: Moderate Decrease Severe: Severe Loss
Muscle Mass Non Severe: Mild Decrease Non Severe: Mild Loss
Severe: Moderate Decrease Severe: Severe Loss
Fluid Accumulation Non Severe: Mild Accumulation Non Severe: Mild Accumulation
Severe: Moderate to severe Severe: Moderate to severe
accumulation accumulation
Reduced Right Of Way Maintenance Supervisor Strength Non Severe: N/A Non Severe: N/A
Severe: Measurably reduced Severe: Measurably reduced
Use of terms such as suspected, likely, concern for, or probable (associated with a specific diagnosis that is being evaluated, monitored, or treated as if it exists) are acceptable and can be coded in the inpatient setting, when documented at the
time of discharge.
Thank you,
Sary Jha RN
CDI Specialist
[place] [facility]
Please use your independent medical judgment in providing your response.
[2023-07-29 11:50] VITALS: BP 157/71
--- NOTE | 2023-07-29 12:31 | W.PN.HOSP.TC ---
Today's Communication/Plan
-
monitor hgb
SCR rising - JESSICA - provide fluids
Assessment / Plan
Assessment / Plan
Physical Exam
General: No Apparent Distress, Comfortable, Conversant and Appears Chronically Ill
HEENT: NormoCephalic, Anicteric and Moist mucous membranes
Respiratory: Clear
Cardiac: S1/S2 and Regular Rhythm
GI: Soft, Non Tender and Non Distended
Musculoskeletal: No Clubbing, No Cyanosis and No Edema
Skin: Warm and Dry
Neuro: AO x 3 and Nonfocal/grossly intact
IMPRESSION:
#Left hip fracture, left hip pain
-pt ambulates with walker
Left intertrochanteric femur fracture status post intramedullary nailing POD 1
-Ortho consulted
Left lower extremity weight-bear as tolerated
PT OT
SCDs
Okay to restart Coumadin as per ortho
Pain control
Okay to shower postop day 3.� Keep dressings clean and dry
Dressings to be removed on postop day 7
Patient will follow-up with [facility] in 2 weeks postop for staple removal and reevaluation
#Acute blood loss anemia
-most likely 2/2 to recent nailing
-monitor with coumadin
#JESSICA
-LR bolus today
-cont to monitor
-most likely pre-renal due to blood loss
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
-stable , no acute bleed nor stroke
#Leukocytosis
-most likely reactive with stress
-ctm
-resolved
#Hypokalemia
-monitor and replete
#Antiphospholipid antibody
-restart coumadin - monitor hgb
DNR per discussion with the patient
DVT proph-coumadin
Anticipated Discharge: Within 24 hours
Subjective/Interval History
-
Date of Service: July 29, 2023
no acute events
Objective Data
-
Labs:
Laboratory Results
07/29/23 07/29/23
04:10 08:49
WBC 8.7
Hgb 7.8 L
Hct 24.2 L
Plt Count 301
PT 26.6 H
INR 2.47
Sodium 136
Potassium 3.9
Chloride 102
Carbon Dioxide 26
BUN 47 H
Creatinine 1.2 H
Glucose 85
Calcium 8.5
Vital Signs:
Vital Signs
Temp Pulse Resp BP Pulse Ox
97.8 F 75 18 157/71 98
07/29/23 11:50 07/29/23 11:50 07/29/23 11:50 07/29/23 11:50 07/29/23 11:50
I&O
07/28/23 07/29/23 07/30/23
06:59 06:59 06:59
Intake Total 1600 / 1600 1440 / 1440 120 / 120
Output Total 1200 / 1200 325 / 325
Balance 400 / 400 1115 / 1115 120 / 120
Review of Systems
-
History Source: Patient
All other systems: Not reviewed unless documented
Data Reviewed
-
Diagnostic Radiology: Image personally visualized and interpreted and Report Reviewed by me
CT Scan: Image personally visualized and interpreted and Report Reviewed by me
Labs: Labs Reviewed by me
[2023-07-29 12:40] VITALS: BP 155/74; PULSE 83; O2SAT 100
--- NOTE | 2023-07-29 14:38 | CM ---
Addendum entered by Marva Rodriguez 07/29/23 16:40:
Unable to submit auth - system down when [employer] called. [employer] - system down
Addendum entered by Marva Rodriguez 07/29/23 15:07:
Received call from Zayra at [facility] - able to accept tomorrow in afternoon
Pt made aware of acceptance-agreed with [facility] - asked to notify her
Spoke with pts -aware and agreed for pt to go to [facility]
Pt needs - will start auth
Plan - when medically ready - transfer to [facility] [place] - auth pending
Original Note:
Chart reviewed - per Dr Ridley pt will be ready tomorrow
Pt accepted at [facility] and [facility] pending bed availability
[facility] pts 1st choice. Spoke with Zayra at [facility] - will check bed availability and return call
[2023-07-29] MEDS: COUMADIN 5 MG PO (17:56)
[2023-07-29 19:30] VITALS: BP 116/73
[2023-07-29 23:55] VITALS: BP 157/75
[2023-07-30] VITALS (7 sets, daily range): BP systolic 152–177; BP diastolic 72–100; PULSE 96
[2023-07-30] MEDS: TYLENOL PO ×2 (01:13→04:20)
[2023-07-30] MEDS: LR 1000 IV (07:59)
[2023-07-30] MEDS: TYLENOL 650 MG PO ×4 (08:04→21:37)
[2023-07-30] MEDS: COLACE 100 MG PO ×2 (08:04→21:37)
[2023-07-30] MEDS: SENOKOT 17.1999999999999993 MG PO (08:04)
[2023-07-30 09:32] LABS: INR 2.48; PT 26.7 Sec (11.4-14.6)
[2023-07-30 09:35] LABS: Blood Urea Nitrogen 20 mg/dl (7-17); Calcium 8.5 mg/dl (8.4-10.2); Carbon Dioxide 26 mmol/L (22-30); Chloride 104 mmol/L (98-107); Estimated Creatinine Clearance 63 ml/min; Glucose 95 mg/dl (70-99); Potassium 3.6 mmol/L (3.5-5.1); Sodium 137 mmol/L (135-145); eGFR > 60.00
[2023-07-30 09:47] LABS: Hematocrit 23.1 % (37.0-47.0); Hemoglobin 7.9 g/dL (12.0-16.0); Mean Corp Hgb Conc. 34.2 g/dL (33.0-37.0); Mean Corpuscular Hgb 31.5 pg (27.0-31.0); Mean Platelet Volume 9.5 fL (7.4-10.4); Platelet Count 291 10^3/uL (130-400); Red Blood Cell Count 2.51 10^6/uL (4.20-5.40); Red Cell Dist. Width 14.7 % (11.5-14.5); White Blood Cell Count 7.8 10^3/uL (4.8-10.8)
--- NOTE | 2023-07-30 12:05 | CM ---
CM following re: d/c planning
Chart reviewed
Pt is medically stable for d/c to SNF pending insurance auth.
Pending reference# [id number]--znbgeue request sent through [employer]
This ad copy writer faxed 38 pages of clinicals for review to
Awaiting authorization determination at this time
CM sent an email to [facility] Hu/clinical liaison who is also awaiting auth to offer bed to patient
CM will continue to follow up with [employer] regarding authorization status and facilitate transport arrangements when applicable
PLAN; d/c to [facility] pending insurance auth
Report: [phone]
--- NOTE | 2023-07-30 13:28 | W.PN.HOSP.TC ---
Today's Communication/Plan
-
pending bed placement
Assessment / Plan
Assessment / Plan
Physical Exam
General: No Apparent Distress, Comfortable, Conversant and Appears Chronically Ill
HEENT: NormoCephalic, Anicteric and Moist mucous membranes
Respiratory: Clear
Cardiac: S1/S2 and Regular Rhythm
GI: Soft, Non Tender and Non Distended
Musculoskeletal: No Clubbing, No Cyanosis and No Edema
Skin: Warm and Dry
Neuro: AO x 3 and Nonfocal/grossly intact
IMPRESSION:
#Left hip fracture, left hip pain
-pt ambulates with walker
Left intertrochanteric femur fracture status post intramedullary nailing POD 1
-Ortho consulted
Left lower extremity weight-bear as tolerated
PT OT
SCDs
Okay to restart Coumadin as per ortho
Pain control
Okay to shower postop day 4.� Keep dressings clean and dry
Dressings to be removed on postop day 7
Patient will follow-up with [facility] in 2 weeks postop for staple removal and reevaluation
#Acute blood loss anemia
-most likely 2/2 to recent nailing
-monitor with coumadin
-stable
#JESSICA
-LR bolus today
-cont to monitor
-most likely pre-renal due to blood loss
-resolved
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
-stable , no acute bleed nor stroke
#Leukocytosis
-most likely reactive with stress
-ctm
-resolved
#Hypokalemia
-monitor and replete
#Antiphospholipid antibody
-restart coumadin - monitor hgb
DNR per discussion with the patient
DVT proph-coumadin
Dispo: DC ready; Cm aware - pending bed/auth
Anticipated Discharge: 24 - 48 hours
Subjective/Interval History
-
Date of Service: July 30, 2023
no acute events
Objective Data
-
Labs:
Laboratory Results
07/30/23 07/30/23
08:34 09:32
WBC Cancelled 7.8
Hgb Cancelled 7.9 L
Hct Cancelled 23.1 L
Plt Count Cancelled 291
PT 26.7 H
INR 2.48
Sodium 137
Potassium 3.6
Chloride 104
Carbon Dioxide 26
BUN 20 H
Creatinine 0.5 L
Glucose 95
Calcium 8.5
Vital Signs:
Vital Signs
Temp Pulse Resp BP Pulse Ox
98.2 F 81 18 152/74 97
07/30/23 11:15 07/30/23 11:15 07/30/23 11:15 07/30/23 11:15 07/30/23 11:15
I&O
07/29/23 07/30/23 07/31/23
06:59 06:59 06:59
Intake Total 1440 / 1440 1660 / 1660
Output Total 325 / 325 150 / 150
Balance 1115 / 1115 1510 / 1510
Review of Systems
-
History Source: Patient
All other systems: Not reviewed unless documented
Data Reviewed
-
Diagnostic Radiology: Image personally visualized and interpreted and Report Reviewed by me
CT Scan: Image personally visualized and interpreted and Report Reviewed by me
Labs: Labs Reviewed by me
[2023-07-30] MEDS: COUMADIN 2.5 MG PO (19:00)
[2023-07-30] MEDS: SENOKOT PO (21:39)
[2023-07-31] MEDS: TYLENOL PO ×2 (00:08→04:20)
[2023-07-31 03:31] VITALS: BP 167/82
[2023-07-31 06:08] LABS: Hematocrit 23.4 % (37.0-47.0); Hemoglobin 7.8 g/dL (12.0-16.0); Mean Corp Hgb Conc. 33.3 g/dL (33.0-37.0); Mean Corpuscular Hgb 30.7 pg (27.0-31.0); Mean Corpuscular Volume 92.1 fL (81.0-99.0); Mean Platelet Volume 9.5 fL (7.4-10.4); Platelet Count 306 10^3/uL (130-400); Red Blood Cell Count 2.54 10^6/uL (4.20-5.40); Red Cell Dist. Width 14.8 % (11.5-14.5); White Blood Cell Count 7.6 10^3/uL (4.8-10.8)
[2023-07-31 06:21] LABS: Blood Urea Nitrogen 17 mg/dl (7-17); Calcium 8.5 mg/dl (8.4-10.2); Carbon Dioxide 29 mmol/L (22-30); Chloride 102 mmol/L (98-107); Estimated Creatinine Clearance 63 ml/min; Glucose 92 mg/dl (70-99); Potassium 3.5 mmol/L (3.5-5.1); Sodium 136 mmol/L (135-145); eGFR > 60.00
[2023-07-31 07:14] VITALS: BP 155/77
[2023-07-31] MEDS: COLACE 100 MG PO ×2 (07:33→19:42)
[2023-07-31] MEDS: TYLENOL 650 MG PO ×5 (07:33→23:37)
[2023-07-31] MEDS: SENOKOT PO ×2 (07:34→19:41)
[2023-07-31 08:53] VITALS: BP 163/78; PULSE 82
[2023-07-31 10:17] VITALS: BP 137/80
--- NOTE | 2023-07-31 12:06 | W.PN.HOSP.TC ---
Addendum entered and electronically signed by Layton Andres MD 07/31/23 18:32:
Severe Protein Calorie Malnutrition
Original Note:
Today's Communication/Plan
-
pending bed placement
Assessment / Plan
Assessment / Plan
Physical Exam
General: No Apparent Distress, Comfortable, Conversant and Appears Chronically Ill
HEENT: NormoCephalic, Anicteric and Moist mucous membranes
Respiratory: Clear
Cardiac: S1/S2 and Regular Rhythm
GI: Soft, Non Tender and Non Distended
Musculoskeletal: No Clubbing, No Cyanosis and No Edema
Skin: Warm and Dry
Neuro: AO x 3 and Nonfocal/grossly intact
IMPRESSION:
#Left hip fracture, left hip pain
-pt ambulates with walker
Left intertrochanteric femur fracture status post intramedullary nailing POD 1
-Ortho consulted
Left lower extremity weight-bear as tolerated
PT OT
SCDs
Okay to restart Coumadin as per ortho
Pain control
Okay to shower postop day 4.� Keep dressings clean and dry
Dressings to be removed on postop day 7
Patient will follow-up with [facility] in 2 weeks postop for staple removal and reevaluation
#Acute blood loss anemia
-most likely 2/2 to recent nailing
-monitor with coumadin
-stable
#JESSICA
-s/p LR
-cont to monitor
-most likely pre-renal due to blood loss
-resolved
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
-stable , no acute bleed nor stroke
#Leukocytosis
-most likely reactive with stress
-ctm
-resolved
#Hypokalemia
-monitor and replete
#Antiphospholipid antibody
-restart coumadin - monitor hgb
DNR per discussion with the patient
DVT proph-coumadin
Dispo: DC ready; Cm aware - pending bed/auth
Anticipated Discharge: Within 24 hours
Subjective/Interval History
-
Date of Service: July 31, 2023
no acute events
Objective Data
-
Labs:
Laboratory Results
07/31/23
05:09
WBC 7.6
Hgb 7.8 L
Hct 23.4 L
Plt Count 306
Sodium 136
Potassium 3.5
Chloride 102
Carbon Dioxide 29
BUN 17
Creatinine 0.6
Glucose 92
Calcium 8.5
Vital Signs:
Vital Signs
Temp Pulse Resp BP Pulse Ox
98.3 F 77 14 137/80 98
07/31/23 10:17 07/31/23 10:17 07/31/23 10:17 07/31/23 10:17 07/31/23 10:17
I&O
07/30/23 07/31/23 08/01/23
06:59 06:59 06:59
Intake Total 1660 / 1660 1340 / 1340
Output Total 150 / 150 378 / 378
Balance 1510 / 1510 962 / 962
Review of Systems
-
History Source: Patient
All other systems: Not reviewed unless documented
Data Reviewed
-
Diagnostic Radiology: Image personally visualized and interpreted and Report Reviewed by me
CT Scan: Image personally visualized and interpreted and Report Reviewed by me
Labs: Labs Reviewed by me
[2023-07-31 14:49] VITALS: BP 133/62
[2023-07-31 19:33] VITALS: BP 160/71
[2023-08-01] VITALS (7 sets, daily range): BP systolic 138–169; BP diastolic 66–84
[2023-08-01] MEDS: TYLENOL PO (05:01)
[2023-08-01 06:20] LABS: Hematocrit 24.4 % (37.0-47.0); Hemoglobin 8.2 g/dL (12.0-16.0); Mean Corp Hgb Conc. 33.6 g/dL (33.0-37.0); Mean Corpuscular Hgb 30.5 pg (27.0-31.0); Mean Corpuscular Volume 90.7 fL (81.0-99.0); Mean Platelet Volume 9.4 fL (7.4-10.4); Platelet Count 329 10^3/uL (130-400); Red Blood Cell Count 2.69 10^6/uL (4.20-5.40); Red Cell Dist. Width 14.8 % (11.5-14.5); White Blood Cell Count 7.6 10^3/uL (4.8-10.8)
[2023-08-01 06:57] LABS: Blood Urea Nitrogen 17 mg/dl (7-17); Calcium 8.5 mg/dl (8.4-10.2); Carbon Dioxide 30 mmol/L (22-30); Chloride 101 mmol/L (98-107); Estimated Creatinine Clearance 63 ml/min; Glucose 93 mg/dl (70-99); Potassium 4.1 mmol/L (3.5-5.1); Sodium 135 mmol/L (135-145); eGFR > 60.00
[2023-08-01] MEDS: TYLENOL 650 MG PO ×4 (07:47→20:14)
[2023-08-01] MEDS: SENOKOT PO ×2 (07:47→20:14)
[2023-08-01] MEDS: COLACE 100 MG PO ×2 (07:47→20:14)
--- NOTE | 2023-08-01 08:49 | W.PN.HOSP.TC ---
Today's Communication/Plan
-
see A/P
Assessment / Plan
Assessment / Plan
IMPRESSION:
# Left intertrochanteric femur fracture
status post intramedullary nailing
Left lower extremity weight-bear as tolerated
PT OT recc SNF
Okay to restart Coumadin as per ortho, daily INR
Pain control
Okay to shower postop day 4.� Keep dressings clean and dry. Dressings to be removed on postop day 7
Patient will follow-up with [facility] in 2 weeks postop for staple removal and reevaluation
# Acute blood loss anemia, most likely 2/2 to recent nailing
monitor while on Coumadin
# Prerenal JESSICA, resolved s/p IVF
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
stable , no acute bleed nor stroke
# Reactive Leukocytosis, resolved
# Hypokalemia, resolved
# Antiphospholipid antibody
restarted coumadin - monitor hgb
DNR per discussion with the patient
DVT proph-coumadin
Dispo: SNF
Anticipated Discharge: Within 24 hours
Subjective/Interval History
-
Date of Service: August 01, 2023
Objective Data
-
Labs:
Laboratory Results
08/01/23
05:38
WBC 7.6
Hgb 8.2 L
Hct 24.4 L
Plt Count 329
Sodium 135
Potassium 4.1
Chloride 101
Carbon Dioxide 30
BUN 17
Creatinine 0.5 L
Glucose 93
Calcium 8.5
Vital Signs:
Vital Signs
Temp Pulse Resp BP Pulse Ox
36.8 C 73 16 140/66 98
08/01/23 07:59 08/01/23 07:59 08/01/23 07:59 08/01/23 07:59 08/01/23 08:00
I&O
07/31/23 08/01/23 08/02/23
06:59 06:59 06:59
Intake Total 1340 / 1340 1440 / 1440
Output Total 378 / 378 325 / 325
Balance 962 / 962 1115 / 1115
Review of Systems
-
All other systems: Reviewed and negative
Physical Exam
-
General: Well Developed, No Apparent Distress, Comfortable, Conversant and Appears Chronically Ill; Negative Respiratory Distress
HEENT: Normocephalic, Atraumatic, Nose Appears Normal and Ears Appear Normal; Negative Oxygen
Respiratory: Clear to Auscultation and Non Labored Respirations; Negative Accessory Resp Muscle Use
Cardiac: Regular Rhythm and S1/S2
GI: Soft, Nontender, Nondistended and Normal Bowel Sounds
Skin: Warm and Dry
Neuro: Awake, Alert, Oriented and AO x 3
Psych: Calm and Intact Judgement/Insight
Data Reviewed
-
Labs: Labs Reviewed by me
[2023-08-01 10:06] LABS: INR 2.11; PT 23.5 Sec (11.4-14.6)
--- NOTE | 2023-08-01 14:29 | CM ---
Discharge plan of care: Awaiting insurance auth from [facility] for discharge to [facility].
[2023-08-01] MEDS: COUMADIN 5 MG PO (17:41)
[2023-08-02] MEDS: TYLENOL PO ×2 (00:33→04:36)
[2023-08-02 03:15] VITALS: BP 166/84
--- NOTE | 2023-08-02 06:28 | PTCARENOTE ---
Pt noted to have abrasion to left upper inner thigh after toileting at 0430. pt reports not knowing how this happened or even being aware of when it occurred. Pt was not noted to have this abrasion at the beginning of the shift. Abrasion was
cleaned, skin barrier prep was applied. Pt reported no pain. Assessment ongoing.
[2023-08-02 06:37] LABS: INR 2.13; PT 23.7 Sec (11.4-14.6)
[2023-08-02 06:46] LABS: Hematocrit 27.6 % (37.0-47.0); Hemoglobin 9.1 g/dL (12.0-16.0); Mean Corpuscular Volume 93.9 fL (81.0-99.0); Mean Platelet Volume 9.3 fL (7.4-10.4); Platelet Count 369 10^3/uL (130-400); Red Blood Cell Count 2.94 10^6/uL (4.20-5.40); White Blood Cell Count 7.7 10^3/uL (4.8-10.8)
[2023-08-02 06:56] LABS: Blood Urea Nitrogen 16 mg/dl (7-17); Calcium 8.4 mg/dl (8.4-10.2); Carbon Dioxide 29 mmol/L (22-30); Chloride 102 mmol/L (98-107); Estimated Creatinine Clearance 54 ml/min; Glucose 89 mg/dl (70-99); Potassium 3.5 mmol/L (3.5-5.1); Sodium 136 mmol/L (135-145); eGFR > 60.00
[2023-08-02 07:32] VITALS: BP 177/84
[2023-08-02] MEDS: KCL 40 MEQ PO (09:02)
[2023-08-02] MEDS: COLACE 100 MG PO ×2 (09:03→20:34)
[2023-08-02] MEDS: SENOKOT PO ×3 (09:03→20:34)
[2023-08-02] MEDS: TYLENOL 650 MG PO ×4 (09:03→20:34)
[2023-08-02 11:17] VITALS: BP 160/66
--- NOTE | 2023-08-02 11:19 | W.PN.HOSP.TC ---
Today's Communication/Plan
-
for SNF today
Assessment / Plan
Assessment / Plan
A/P:
# Left intertrochanteric femur fracture
status post intramedullary nailing
Left lower extremity weight-bear as tolerated
PT OT recc SNF
Okay to restart Coumadin as per ortho, follow daily INR
Pain control
Okay to shower postop day 4.�Keep dressings clean and dry. Dressings to be removed on postop day 7
Patient will follow-up with [facility] in 2 weeks postop for staple removal and reevaluation
# Acute blood loss anemia, most likely 2/2 to recent nailing
monitor while on Coumadin
# Prerenal JESSICA, resolved s/p IVF
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
stable , no acute bleed nor stroke
# Reactive Leukocytosis, resolved
# Hypokalemia, resolved
# Antiphospholipid antibody
restarted coumadin - monitor hgb
DNR per discussion with the patient
DVT proph-coumadin
Dispo: SNF
Anticipated Discharge: Today
Subjective/Interval History
-
Date of Service: August 02, 2023
Objective Data
-
Labs:
Laboratory Results
08/02/23
05:57
WBC 7.7
Hgb 9.1 L
Hct 27.6 L
Plt Count 369
PT 23.7 H
INR 2.13
Sodium 136
Potassium 3.5
Chloride 102
Carbon Dioxide 29
BUN 16
Creatinine 0.7
Glucose 89
Calcium 8.4
Vital Signs:
Vital Signs
Temp Pulse Resp BP Pulse Ox
36.6 C 71 18 160/66 97
08/02/23 11:17 08/02/23 11:17 08/02/23 11:17 08/02/23 11:17 08/02/23 11:17
I&O
08/01/23 08/02/23 08/03/23
06:59 06:59 06:59
Intake Total 1440 / 1440 480 / 480
Output Total 325 / 325
Balance 1115 / 1115 455 / 455
Review of Systems
-
All other systems: Reviewed and negative
Physical Exam
-
General: Well Developed, No Apparent Distress, Comfortable, Conversant and Appears Chronically Ill; Negative Respiratory Distress
HEENT: Normocephalic, Atraumatic, Nose Appears Normal and Ears Appear Normal; Negative Oxygen
Respiratory: Clear to Auscultation and Non Labored Respirations; Negative Accessory Resp Muscle Use
Cardiac: Regular Rhythm and S1/S2
GI: Soft, Nontender, Nondistended and Normal Bowel Sounds
Skin: Warm and Dry
Neuro: Awake, Alert, Oriented and AO x 3
Psych: Calm and Intact Judgement/Insight
Data Reviewed
-
Labs: Labs Reviewed by me
--- NOTE | 2023-08-02 11:49 | CM ---
Addendum entered by Marva Rodriguez 08/02/23 16:53:
Transport not available until after 9PM
Transport will be in am - forms on chart
Pt, Family and facility aware
Addendum entered by Marva Rodriguez 08/02/23 16:28:
Received call from Janina at [facility]
Pt approved for 3 days - 08/02-08/04
next review 08/05 -Fax clinicals to [phone]
Auth # [id number]
Plan transfer to [facility]
Report - [phone]
Fax - [phone]
Addendum entered by Marva Rodriguez 08/02/23 15:26:
Called [employer] to begin new auth and spoke with agricultural sales representative Karri Mane
Reporting previous auth still valid. Updated clinicals were received - will receive call back today with additional information
Updated RN and facility
Pt and her are aware
Addendum entered by Marva Rodriguez 08/02/23 13:23:
Received word from [facility] - auth - new auth needed
Submitted for new auth through [employer]
Ref # [id number]
Faxed clinicals - Fax - [phone]
Original Note:
Called [employer] to obtain auth
Spoke with Scott Horta
Pt approved for 3 days - 07/30-08/01
Fax clinicals to [phone]
Auth # -[id number]
Discussed - past reviewed date - requested updated clinicals to be faxed to [phone]
Updated clinicals faxed to above # per request - reference #[id number]
Spoke with Zayra at [facility] - given auth #, aware updated clinicals faxed
Dr Rebolledo made aware
Called and spoke with pts
Discussed IMM
--- NOTE | 2023-08-02 14:08 | W.DCSUMMARY ---
Discharge Summary
Discharge Data
Date of Admission: 07/26/23
Date of Discharge: 08/03/23
-
Pending Results: No
Hospital Course
Principal Diagnosis:
Left intertrochanteric femur fracture status post intramedullary nailing this admission
Resolved prerenal acute kidney injury
Chronic Diagnoses:�
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
Antiphospholipid antibody on Coumadin
Consultations:�
Orthopedic surgery
Procedures:�
Left intertrochanteric femur fracture status post intramedullary nailing this admission 07/27/23
Clinical course:�
This is a 72-year-old female, with past medical history as stated above, who presented with mechanical fall and left hip fracture.
Problem 1:
Mechanical fall with left intertrochanteric femur fracture.
The patient underwent intramedullary nailing on 07/27/2023.
She can continue to bear weight as tolerated on her left lower extremity.
She can continue with Coumadin from prior to admission for DVT prophylaxis (she was taking Coumadin for Antiphospholipid syndrome).
Per orthopedic, she follow-up for dressing to be removed on postop day 7, and with Dr. Ortega in 2 weeks for staple removal and reevaluation.
She was discharged to SNF per PT OT eval.
As for the rest of her medical problems, they were stable during her hospital stay.
Discharge Plan
-
Patient Disposition: Fdc/SNF
Discharge Diagnosis/Procedures: Left intertrochanteric femur fracture status post intramedullary nailing 07/27/2023
Condition: Fair
Diet: As tolerated
Activity: As tolerated
Driving Restrictions: Not until seen by your Dr
Blood Work: INR in 3-5 days
Activity Restrictions/Additional Instructions:
Keep dressings clean and dry. Dressings to be removed on postop day 7 (08/03).
follow-up with Dr Faruqi in 2 weeks postop for staple removal and reevaluation.
Referrals:
Liberty Ortega DO [Active] - in one month
Henrique Johnson MD [Family Provider] - in less than 1 week
Prescriptions:
Continued
warfarin 2.5 mg Tablet
See Rx Instructions .ROUTE .COMPLEX
Rx Instructions:
2.5 mg orally
Tues//Sat
levothyroxine 125 mcg Tablet
125 mcg PO DAILY AT 0700
warfarin 5 mg Tablet
5 mg PO MOWEFR
docusate sodium [Colace] 100 mg Capsule
100 mg PO DAILY
aspirin 81 mg Tablet
81 mg PO DAILY
mirtazapine 15 mg Tablet
15 mg PO HS
Discontinued
doxycycline hyclate [Doxy] 100 mg Tablet
50 mg PO DAILY
Rx Instructions:
takes daily as prophylaxis treatment for chronic eye infection
Discharge Orders:
Discharge Patient (As Directed); Ordered 08/02/23
Ordered By: Day Rebolledo
[2023-08-02 15:03] VITALS: BP 158/81
[2023-08-02 18:58] VITALS: BP 141/75
[2023-08-02 23:09] VITALS: BP 150/98
[2023-08-03] MEDS: TYLENOL PO ×2 (00:33→04:18)
[2023-08-03 06:13] LABS: Hematocrit 29.2 % (37.0-47.0); Hemoglobin 9.5 g/dL (12.0-16.0); Mean Corp Hgb Conc. 32.5 g/dL (33.0-37.0); Mean Corpuscular Hgb 30.8 pg (27.0-31.0); Mean Corpuscular Volume 94.8 fL (81.0-99.0); Platelet Count 391 10^3/uL (130-400); Red Blood Cell Count 3.08 10^6/uL (4.20-5.40); Red Cell Dist. Width 15.5 % (11.5-14.5); White Blood Cell Count 6.4 10^3/uL (4.8-10.8)
[2023-08-03 06:31] LABS: INR 2.17
[2023-08-03 06:41] LABS: Blood Urea Nitrogen 16 mg/dl (7-17); Calcium 8.3 mg/dl (8.4-10.2); Carbon Dioxide 29 mmol/L (22-30); Chloride 104 mmol/L (98-107); Estimated Creatinine Clearance 54 ml/min; Glucose 82 mg/dl (70-99); Sodium 135 mmol/L (135-145); eGFR > 60.00
[2023-08-03 07:43] VITALS: BP 165/79
[2023-08-03] MEDS: COLACE 100 MG PO (08:07)
[2023-08-03] MEDS: SENOKOT PO (08:07)
[2023-08-03] MEDS: TYLENOL 650 MG PO (08:07)
--- NOTE | 2023-08-03 10:10 | W.PN.HOSP.TC ---
Today's Communication/Plan
-
for SNF today
could not discharge yesterday due to transport issues
Assessment / Plan
Assessment / Plan
A/P:
# Left intertrochanteric femur fracture
status post intramedullary nailing
Left lower extremity weight-bear as tolerated
PT OT recc SNF
Okay to restart Coumadin as per ortho, follow daily INR
Pain control
Okay to shower postop day 4.�Keep dressings clean and dry. Dressings to be removed on postop day 7
Patient will follow-up with [facility] in 2 weeks postop for staple removal and reevaluation
# Acute blood loss anemia, most likely 2/2 to recent nailing
monitor while on Coumadin
# Prerenal JESSICA, resolved s/p IVF
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
stable , no acute bleed nor stroke
# Reactive Leukocytosis, resolved
# Hypokalemia, resolved
# Antiphospholipid antibody
restarted coumadin - monitor hgb
DNR per discussion with the patient
DVT proph-coumadin
Dispo: SNF
Anticipated Discharge: Today
Subjective/Interval History
-
Date of Service: August 03, 2023
Objective Data
-
Labs:
Laboratory Results
08/03/23
05:26
WBC 6.4
Hgb 9.5 L
Hct 29.2 L
Plt Count 391
PT 24.0 H
INR 2.17
Sodium 135
Potassium 4.0
Chloride 104
Carbon Dioxide 29
BUN 16
Creatinine 0.7
Glucose 82
Calcium 8.3 L
Vital Signs:
Vital Signs
Temp Pulse Resp BP Pulse Ox
36.4 C 71 16 165/79 97
08/03/23 07:43 08/03/23 07:43 08/03/23 07:43 08/03/23 07:43 08/03/23 07:43
I&O
08/02/23 08/03/23 08/04/23
06:59 06:59 06:59
Intake Total 480 / 480 720 / 720
Output Total 650 / 650
Balance 455 / 455 70 / 70
Review of Systems
-
All other systems: Reviewed and negative
Physical Exam
-
General: Well Developed, No Apparent Distress, Comfortable, Conversant and Appears Chronically Ill; Negative Respiratory Distress
HEENT: Normocephalic, Atraumatic, Nose Appears Normal and Ears Appear Normal; Negative Oxygen
Respiratory: Clear to Auscultation and Non Labored Respirations; Negative Accessory Resp Muscle Use
Cardiac: Regular Rhythm and S1/S2
GI: Soft, Nontender, Nondistended and Normal Bowel Sounds
Skin: Warm and Dry
Neuro: Awake, Alert, Oriented and AO x 3
Psych: Calm and Intact Judgement/Insight
Data Reviewed
-
Labs: Labs Reviewed by me
--- NOTE | 2023-08-03 11:35 | CM ---
Plan transfer to [facility]
Facility aware of transport time
Pts family aware of transport time
Report - [phone]
Fax - [phone]
== END 2023-08-03 11:32 | DRG 480 ==
LOC: 2 SOUTH 04:33
PROVIDERS: Clinical Nurse Specialist Family Health; Internal Medicine; Physician Assistant Surgical; ADMITTING PHYSICIAN Internal Medicine; ATTENDING PHYSICIAN Internal Medicine; CONSULT PHYSICIAN Orthopaedic Surgery; EMERGENCY PHYSICIAN Emergency Medicine; FAMILY PHYSICIAN Family Medicine
PROC: 0QH706Z Insertion of Intramedullary Internal Fixation Device into Left Upper Femur, Open Approach (ICD-10-PCS; 2023-07-27)
DX: S72.142A Displaced intertrochanteric fracture of left femur, initial encounter for closed fracture (principal); E43 Unspecified severe protein-calorie malnutrition; D68.61 Antiphospholipid syndrome; D62 Acute posthemorrhagic anemia; N17.9 Acute kidney failure, unspecified; Z68.1 Body mass index [BMI] 19.9 or less, adult; I69.354 Hemiplegia and hemiparesis following cerebral infarction affecting left non-dominant side; E87.6 Hypokalemia; W18.30XA Fall on same level, unspecified, initial encounter
CPT/HCPCS: 70450; 73502; 73552; 73700; 76000; 80048; 80053; 83735; 85025; 85027; 85610; 86803; 86850; 86900; 86901; 93005; 96374; 97110; 97116; 97162; 97167; 97530; 97535; 99285; C1713; C1769; P9059

== ENCOUNTER → 2023-08-05 08:53 | Outpatient (REF) | payer OTHER, SELFPAY ==
[2023-08-05 09:25] LABS: Hematocrit 25.9 % (37.0-47.0); Hemoglobin 8.6 g/dL (12.0-16.0); Mean Corp Hgb Conc. 33.2 g/dL (33.0-37.0); Mean Corpuscular Hgb 31.4 pg (27.0-31.0); Mean Corpuscular Volume 94.5 fL (81.0-99.0); Platelet Count 446 10^3/uL (130-400); Red Blood Cell Count 2.74 10^6/uL (4.20-5.40); Red Cell Dist. Width 16.7 % (11.5-14.5); White Blood Cell Count 7.7 10^3/uL (4.8-10.8)
[2023-08-05 09:32] LABS: INR 1.65; PT 19.3 Sec (11.4-14.6)
[2023-08-05 09:34] LABS: Blood Urea Nitrogen 19 mg/dl (7-17); Calcium 8.6 mg/dl (8.4-10.2); Carbon Dioxide 27 mmol/L (22-30); Chloride 107 mmol/L (98-107); Glucose 86 mg/dl (70-99); Potassium 4.2 mmol/L (3.5-5.1); Sodium 135 mmol/L (135-145); eGFR > 60.00
== END ==
LOC: OLABWHC 08:53
PROVIDERS: ATTENDING PHYSICIAN Family Medicine
DX: S72.142D Displaced intertrochanteric fracture of left femur, subsequent encounter for closed fracture with routine healing (principal); E03.9 Hypothyroidism, unspecified; Z79.01 Long term (current) use of anticoagulants
CPT/HCPCS: 36415; 80048; 85027; 85610

== ENCOUNTER → 2023-08-08 09:24 | Outpatient (REF) | payer OTHER, SELFPAY ==
[2023-08-08 10:54] LABS: Hematocrit 26.4 % (37.0-47.0); Hemoglobin 8.6 g/dL (12.0-16.0); Mean Corp Hgb Conc. 32.6 g/dL (33.0-37.0); Mean Corpuscular Volume 98.1 fL (81.0-99.0); Platelet Count 418 10^3/uL (130-400); Red Blood Cell Count 2.69 10^6/uL (4.20-5.40); Red Cell Dist. Width 17.2 % (11.5-14.5); White Blood Cell Count 7.1 10^3/uL (4.8-10.8)
[2023-08-08 11:05] LABS: PT 17.9 Sec (11.4-14.6)
== END ==
LOC: OLABWHC 09:24
PROVIDERS: ATTENDING PHYSICIAN Family Medicine
DX: Z86.73 Personal history of transient ischemic attack (TIA), and cerebral infarction without residual deficits (principal); S72.142D Displaced intertrochanteric fracture of left femur, subsequent encounter for closed fracture with routine healing; Z79.01 Long term (current) use of anticoagulants
CPT/HCPCS: 36415; 85027; 85610; 85730

== ENCOUNTER → 2023-08-10 09:30 | Outpatient (REF) | payer OTHER, SELFPAY ==
[2023-08-10 10:04] LABS: INR 1.85; PT 21.5 Sec (11.4-14.6)
== END ==
LOC: OLABWHC 09:30
PROVIDERS: ATTENDING PHYSICIAN Family Medicine
DX: Z79.01 Long term (current) use of anticoagulants (principal); I69.354 Hemiplegia and hemiparesis following cerebral infarction affecting left non-dominant side; Z86.73 Personal history of transient ischemic attack (TIA), and cerebral infarction without residual deficits
CPT/HCPCS: 36415; 85610

== ENCOUNTER → 2023-08-12 08:58 | Outpatient (REF) | payer OTHER, SELFPAY ==
[2023-08-12 10:13] LABS: INR 2.95; PT 30.6 Sec (11.4-14.6)
== END ==
LOC: OLABWHC 08:58
PROVIDERS: ATTENDING PHYSICIAN Family Medicine
DX: Z86.73 Personal history of transient ischemic attack (TIA), and cerebral infarction without residual deficits (principal); Z79.01 Long term (current) use of anticoagulants
CPT/HCPCS: 36415; 85610

== ENCOUNTER → 2023-08-15 08:57 | Outpatient (REF) | payer OTHER, SELFPAY ==
[2023-08-15 11:24] LABS: INR 4.02; PT 39.2 Sec (11.4-14.6)
== END ==
LOC: OLABWHC 08:57
PROVIDERS: ATTENDING PHYSICIAN Family Medicine
DX: I69.398 Other sequelae of cerebral infarction (principal); Z79.01 Long term (current) use of anticoagulants; I69.354 Hemiplegia and hemiparesis following cerebral infarction affecting left non-dominant side
CPT/HCPCS: 36415; 85610

== ENCOUNTER → 2023-08-19 09:01 | Outpatient (REF) | payer OTHER, SELFPAY ==
[2023-08-19 10:40] LABS: PT 28.6 Sec (11.4-14.6)
== END ==
LOC: OLABWHC 09:01
PROVIDERS: ATTENDING PHYSICIAN Family Medicine
DX: Z79.01 Long term (current) use of anticoagulants (principal); I69.354 Hemiplegia and hemiparesis following cerebral infarction affecting left non-dominant side
CPT/HCPCS: 36415; 85610

== ENCOUNTER → 2023-08-26 08:58 | Outpatient (REF) | payer OTHER, SELFPAY ==
[2023-08-26 09:48] LABS: PT 28.6 Sec (11.4-14.6)
== END ==
LOC: OLABWHC 08:58
PROVIDERS: ATTENDING PHYSICIAN Family Medicine
DX: Z79.01 Long term (current) use of anticoagulants (principal)
CPT/HCPCS: 36415; 85610

== ENCOUNTER 2024-01-28 18:17 | Observation (INO) | payer OTHER, SELFPAY ==
[2024-01-28] VITALS (10 sets, daily range): BP systolic 171–192; BP diastolic 80–123; BMI 16.0; BMI 15.8
--- NOTE | 2024-01-28 10:39 | ED.GENMED ---
History of Present Illness
General
Chief Complaint: Weakness
Source: patient
Time Seen by Provider: 01/28/24 10:19
History of Present Illness
History of Present Illness:
This patient is a 73-year-old female presents emergency department with generalized weakness that started last night associated with difficulty walking due to bilateral leg weakness and feeling a 'electrical shock' through her legs when she tries to
stand or walk. Patient was recently diagnosed with breast CA and is on an oral chemotherapeutic agent. She has been recently noting pain across her 'ribs' bilaterally as well as her lower back, and was due to get x-rays to evaluate but has not yet
done so. She states she feels much better when she is supine but feels much more uncomfortable when she sits up particularly in her ribs but also in her back. She denies numbness, tingling, focal weakness, bowel or bladder incontinence, perianal
anesthesia. Patient denies fever, chills, abdominal pain, nausea, vomiting, anorexia, or other complaints.
Past History
Past History
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
ED Past Surgical History: Cholecystectomy and Other (Colostomy to Ileostomy)
Social History
Tobacco: Non-smoker
Alcohol: None
Drug: None
Personal:
Living: with family
Phy Exam
Physical Exam
Physical Exam:
GENERAL: Alert , in no apparent distress but overall cachectic appearing
EYE: pupils equal and reactive
NECK: Supple, no significant adenopathy.
ENT: o/p clr, mm dry
CARDIAC: Regular rate and rhythm, 2 out of 6 systolic murmur noted.
LUNGS: Clear breath sounds bilaterally, no acute respiratory distress, no wheezes/rales/rhonchi. Breast exam, palpable mass noted at left breast with distortion of anatomy of soft tissue
ABDOMEN: Soft, without focal tenderness, no r/g
NEUROLOGICAL: Alert and oriented, baseline left-sided weakness
SKIN: Warm and dry, skin intact.
MUSCULOSKELETAL: No edema, well perfused.
PSYCH: Normal and appropriate interaction.
Back: no ttp of back, no skin changes
Course
Orders/Labs/Results
Orders:
Orders
01/28/24 10:20
Electrocardiogram (*1) Urgent
Reason for Study: Fatigue / Weakness
EKG- Treatment ONCE
01/28/24 10:38
0.9% Sodium Chloride 250 ml [Nss] 250 ml IV BOLUS
CR Ribs-wenceslao 4 Vw W/pa Chest Urgent
Comment:
Reason For Exam: RIB PAIN, BREAST CA
CR Thoracic Spine 3 Views Urgent
Reason For Exam: BACK PAIN, BREAST CA
LS Spine Complete, 4 View [CR Lumbar Spine Comp Min 4 Vw*] Urgent
Comment:
Reason For Exam: BACK PAIN, BREAST CA
01/28/24 10:39
Cardiac Monitoring- Treatment ONCE
01/28/24 10:40
Complete Blood Count/No Diff Urgent
Comprehensive Metabolic Panel Urgent
Free T4 Urgent
Comment: ADD ON
Magnesium Urgent
PTT Urgent
Prothrombin Time Urgent
TSH Urgent
Troponin I Urgent
01/28/24 13:39
Case Management Consult ONCE
Case Management Consult: Discharge Planning
PT Consult [Pt Eval And Treat] Urgent
Activity Level: Out of Bed-Early Mobility
01/28/24 Dinner
Regular
At Your Request: Full Participation
01/28/24 16:29
Potassium Chloride [KCl] 40 meq PO NOW STA
01/28/24 16:57
Add On- LAB Urgent
Tests Added?: free t4
01/28/24 17:43
Admit/Transfer Patient As Directed
Co-Sign Provider:
Level of Care: Observation services
Assign to:: Medical/Surgical
Physician / Group: mary campos
Diagnosis: back pain with leg weakness concern fx vs mets
Code Status As Directed
Resuscitation Status: Do not resuscitate
Reached after discussion with pt or family/Healthcare POA: Yes
Based on pt advanced directive or healthcare POA form: Yes
Decision communicated with: per pt
DNR Bracelet Application ONCE
01/28/24 17:45
PRN Pain Medication Management As Directed
May give lesser potent ordered pain med per pt: Yes
preference::
Protocol:: Medication orders for pain may be administered in a
manner that supports deferring to patient preference
when the pt is:
- Requesting an ordered lesser potent pain medication.
Least to most potent pain medications are defined
as: acetaminophen < NSAID < tramadol < opioids
(morphine, oxycodone, hydromorphone).
- Requesting a lesser dose of the same medication IF
ORDERED.
- Requesting a less intrusive route of administration
if both routes are prescribed by the provider (PO <
IV).
01/28/24 19:00
Diazepam [Valium] 5 mg PO BID
01/28/24 19:31
Acetaminophen [Tylenol] 650 mg PO Q4HPRN PRN
Warfarin [Coumadin] 2.5 mg PO Q48H@1800
01/28/24 19:31
VTE Contraindication Routine
VTE Mechanical Device Contraindication: Medical Contraindication
Pharmocologic Contraindication: Medical Contraindication
Comment: pt on coumadin
Activity As Directed
Activity Level: With Assistance
Vital Signs As Directed
Frequency: Per unit guidelines
Ot Eval And Treat Routine
01/28/24 19:41
Tramadol HCl [Ultram] 25 mg PO TIDPRN PRN
01/28/24 22:00
Acetaminophen [Tylenol] 1,000 mg PO TID
Docusate Sodium [Colace] 100 mg PO HS
Mirtazapine [Remeron] 15 mg PO HS
01/29/24 06:00
Lumbar W/O & With Contrast MR [MR Lumbar W/o & With Contrast] IN AM
Comment:
Reason For Exam: leg weakness breast ca concern mets vs fx
OK for patient to be off Cardiac Monitoring for MRI: Yes
Recent pill cam endoscopy?: No
Pacemaker/Defibrillator?: No
MR Thoracic Spine W/o & With IN AM
Comment:
Reason For Exam: back pain leg weakness concern fx vs mets
OK for patient to be off Cardiac Monitoring for MRI: Yes
Recent pill cam endoscopy?: No
Pacemaker/Defibrillator?: No
Levothyroxine [Synthroid] 125 mcg PO SuMoWeFrSa@0600
01/29/24 07:14
Basic Metabolic Panel IN AM
Complete Blood Count/With Diff IN AM
PT/INR [Prothrombin Time] IN AM
01/29/24 08:00
Aspirin Low Dose EC [Aspir Low (Enteric Coated)] 81 mg PO DAILY
Vmvuebazz-Cpr-Heex [Femara] 2.5 mg PO DAILY
Lidocaine [Lidocaine 4% Patch] 1 patch TOPICAL DAILY
Apply Lidocaine patch(s) to:: lower back pain
01/29/24 18:00
Warfarin [Coumadin] 5 mg PO Q48H
01/30/24 07:00
Basic Metabolic Panel IN AM
Complete Blood Count/With Diff IN AM
PT/INR [Prothrombin Time] IN AM
01/31/24 06:00
PT/INR [Prothrombin Time] IN AM
Abnormal Lab Results
01/28/24
10:40
RBC 4.10 L 10^6/uL
(4.20-5.40)
Hgb 9.6 L g/dL
(12.0-16.0)
Hct 30.0 L %
(37.0-47.0)
MCV 73.2 L fL
(81.0-99.0)
MCH 23.4 L pg
(27.0-31.0)
MCHC 32.0 L g/dL
(33.0-37.0)
RDW 23.5 H %
(11.5-14.5)
PT 26.9 H Sec
(11.4-14.6)
APTT 41.5 H Sec
(23.4-35.0)
Potassium 3.3 L mmol/L
(3.5-5.1)
BUN 18 H mg/dl
(7-17)
Glucose 104 H mg/dl
(70-99)
Alkaline Phosphatase 146 H U/L
(38-126)
TSH 7.31 H uIU/ml
(0.47-4.68)
01/28/24 10:40
01/28/24 10:40
Vital Signs
Initial and Last Documented VS:
Initial Vital Signs
Temp Pulse Resp BP Pulse Ox
97.9 F 66 18 190/80 98
01/28/24 10:17 01/28/24 10:17 01/28/24 10:17 01/28/24 10:17 01/28/24 10:17
Last Documented Vital Signs
Temp Pulse Resp BP Pulse Ox
97.8 F 61 16 138/69 99
01/30/24 07:30 01/30/24 07:30 01/30/24 07:30 01/30/24 07:30 01/30/24 07:30
*Critical Care Note
Total Time (30-74mins, 75-104mins- exclusive of procedures): Not Applicable
Update Note
Update Note:
Patient presents to the Emergency Department with bilateral leg weakness____
Number and Complexity of Problems Addressed at the Encounter
� Chronic conditions affecting care:
� Acute Exacerbation and/or Progression of Chronic Illness:
� Differential Diagnosis includes: But not limited to electrolyte disorder, dehydration, deconditioning, metastatic disease to spine, compression fracture, etc.
Amount and/or Complexity of Data to be Reviewed and Analyzed
� I performed an independent evaluation of and my interpretation is:
EKG: Read by me, normal sinus rhythm, normal rate, no acute ischemia
CT:
Xrays: Read by radiology, chronic L2 fracture, age-indeterminate T11 fracture, bone scan could be considered for further evaluation
Laboratory Studies: Baseline anemia, INR 2.5, mild hypokalemia, TSH elevated which in conversation with family has been a recent finding with modifications to her medication may
Other:
� Review of other/old records reveals: I reviewed patient's office visit from yesterday with oncology
� Clinical information was obtained by an independent historian: Daughters x 2 and
� Prescriptions/Medications Considered but not given:
� Further testing considered but not performed:
Risk of Complications and/or Morbidity or Mortality of Patient Management
� Social determinants of health affecting care:
� Discussion with other providers (PCP, Hospitalists, Consultants, etc):
� Escalation of care including admission/observation vs risk of discharge considered: Long discussion with family and patient. Of note, patient expresses that she is DNR and sometimes does not want to continue living although
she is not acutely suicidal. This was in the presence of her daughter that she stated this. There is not a specific focal etiology identified for patient's new leg pain, may need consideration of spinal imaging to rule out metastatic disease, disc
disease, etc. Given patient does not have perianal anesthesia, new weakness, new incontinence, etc. this is not considered emergent or consistent with impending cauda equina or cord compression. PT and CM saw pt. Will obs, d/w hospitalist.
ED Attending Note
-
Portions of this chart may have been created with voice recognition software.� Occasional wrong word or��sound alike� substitutions may have occurred due to the inherent limitations of voice recognition software.
Discharge Plan
Departure
Patient Disposition: Admit
Date of Disposition: 01/28/24
Time of Disposition: 17:02
Admit to: Med/Surg
Presentation/result/management discussed w/ accepting MD/DO: Hospitalist
Condition: Fair
Discharge Problem:
Weakness
Interventions
Interventions:
*Risk Screen - Suicide Last Done: 01/28/24 20:59
*General Assessment Last Done: 01/28/24 10:17
*Neglect/Abuse Screening Last Done: 01/28/24 10:17
ED- Fall Risk Assessment Last Done: 01/28/24 10:17
*ED COVID-19 Vaccine History Last Done: 01/28/24 20:59
*Nursing Disposition Last Done: 01/28/24 18:39
ED- Cardiac Assessment Last Done: 01/28/24 10:17
ED- Neurological Assessment Last Done: 01/28/24 10:17
ED- Pulmonary Assessment Last Done: 01/28/24 10:17
Discharge Date and Time
Discharge Date/Time: 01/28/24 19:21
[2024-01-28] MEDS: NSS 250 IV (10:43)
[2024-01-28 11:12] LABS: ALT (SGPT) 11 U/L (0-35); APTT 41.5 Sec (23.4-35.0); AST (SGOT) 28 U/L (14-36); Albumin 3.6 g/dl (3.5-5.0); Alkaline Phosphatase 146 U/L (38-126); Blood Urea Nitrogen 18 mg/dl (7-17); Calcium 9.3 mg/dl (8.4-10.2); Carbon Dioxide 27 mmol/L (22-30); Chloride 102 mmol/L (98-107); Estimated Creatinine Clearance 46 ml/min; Glucose 104 mg/dl (70-99); Hemoglobin 9.6 g/dL (12.0-16.0); Magnesium 1.7 mg/dl (1.6-2.3); Mean Corpuscular Hgb 23.4 pg (27.0-31.0); Mean Corpuscular Volume 73.2 fL (81.0-99.0); Mean Platelet Volume 9.2 fL (7.4-10.4); PT 26.9 Sec (11.4-14.6); Platelet Count 347 10^3/uL (130-400); Potassium 3.3 mmol/L (3.5-5.1); Red Cell Dist. Width 23.5 % (11.5-14.5); Sodium 138 mmol/L (135-145); Total Bilirubin 0.4 mg/dl (0.2-1.3); Total Protein 6.7 g/dl (6.3-8.2); White Blood Cell Count 6.7 10^3/uL (4.8-10.8); eGFR > 60.00
[2024-01-28 11:24] LABS: Troponin I 0.022 ng/ml
[2024-01-28 11:43] LABS: TSH 7.31 uIU/ml (0.47-4.68)
--- NOTE | 2024-01-28 15:12 | CM ---
Addendum entered by Beulah Marti 01/28/24 15:33:
Referrals sent to [facility] and [facility].
Original Note:
erp manager reviewed patient's chart and met with patient and spoke with patient's spouse by phone and daughter, Ebony Alas [phone] with permission from patient. Patient lives with spouse in 2 story home with one step to enter, patient was
independent with adl's and used a quad cane with ambulation. Patient has a shower chair and chair glide in home, per physical therapy notes recommendation is for skilled placement options reviewed and patient has selected [facility] and
[facility], case operator will make referrals case operator also reviewed with patient's daughter [facility]ac[facility] and [facility].
Pharmacy: [facility]
PCP: Dr. Johnson
Plan; Skilled placement.
[2024-01-28] MEDS: KCL 40 MEQ PO (17:00)
--- NOTE | 2024-01-28 17:02 | HPS.HSE ---
Addendum entered and electronically signed by Yoavny Gonzales MD 01/28/24 18:12:
I saw and examined the patient.
The MIXING AND DISPENSING SUPERVISOR or PA's note was reviewed and I agree with the note.
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
right breast came to the hospital with intractable back pain shooting down to both legs. Patient was by physical therapy who recommended SNF. manager global unable to place from the ED today. Start Tylenol, Valium, lidocaine patch. PT/OT. Check
MRI lumbar and thoracic spine. DNR
General: Comfortable and Conversant; No Pain, Fever or Chills
HEENT: NormoCephalic, Anicteric, Moist mucous membranes
Respiratory: Clear; No Wheezes or Rales
Cardiac: S1/S2; No Murmur, Rub, Gallop or Peripheral Edema
GI: Soft, Non Tender, Non Distended, Normal Bowel Sounds, No Hepatosplenomegaly and Ostomy (Colostomy present)
Musculoskeletal: No Edema and Other (Negative straight leg test bilateral legs, bilateral leg weakness left greater than right sensation intact)
Neuro: AO x 3, Cranial Nerves Intact and No Sensory Deficits; No Slurred Speech, Facial Droop, Tremors or Sedated
Psych: Calm
I spent a total of 76 minutes with the patient or on the floor. More than 50% of this time involved counseling and coordination of care.
Original Note:
Family Physician
-
Family Physician: Henrique Johnson
Chief Complaint
-
Bilateral leg weakness lower back pain
History of Present Illness
73-year-old female from home where she lives with her in a two-story home. She reports weakness in her legs with difficulty walking since last night. When she stands she feels an electrical shock type pain down both of her legs. She was
also complaining of pain across ribs bilaterally and in her lower back just above her tailbone. She reports pain is better lying supine. She denies any bowel or bladder incontinence, numbness, tingling, fever, chills, abdominal pain, nausea,
vomiting, diarrhea, chest pain, palpitations, shortness of breath, cough.
She has medical history of Invasive mammary carcinoma left and right breast June 2023, Ductal carcinoma Right breast, Estrogen receptor/progesterone receptor positive, HER2 negative, RA, CVA right frontotemporal parietal cerebral with right MCA
stenting 2010 with left-sided weakness, antiphospholipid antibody on long-term Coumadin therapy, left femur fracture status post intramedullary nailing July 2023, colon resection secondary to intestinal hemorrhage with permanent colostomy.
Anemia microcytic, hypothyroidism
Medical History
Past Medical History
Past Medical History: Reports CVA (hemiplegia and hemiparesis affecting left non-dominant side), Hypercholesterolemia, Hypothyroidism and Other (Antiphospholipid antibody on long-term AC with Coumadin, RA multiple sites affected)
Additional Past Medical History:
Invasive mammary carcinoma left and right breast
Ductal carcinoma right breast
Estrogen receptor/progesterone receptor positive, HER2 negative
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
Past Surgical History: Reports Other (right MCA stenting)
Additional Past Surgical History:
left femur fracture status post intramedullary nailing July 2023
Colostomy prior colon resection secondary to hemorrhage
Social History
Tobacco: Non-smoker
Alcohol: None
Drug: None
Personal:
Living: With Family ()
Employment: Retired
Family History
Family History: Not pertinent
Allergies / Home Medications
Allergies reflects when Allergies were last updated in [employer].
Home Medications with original date entered in [employer]
Allergy/Medication List:
Allergies
Allergy/AdvReac Type Severity Reaction Status Date / Time
No Known Allergies Allergy Verified 09/16/20 11:14
Home Medications
docusate sodium 100 mg capsule (Colace) 100 mg PO HS Constipation 07/26/23
levothyroxine 125 mcg tablet 125 mcg PO SUMOWEFRSA@0700 Thyroid 07/26/23
mirtazapine 15 mg tablet 15 mg PO HS Mental Health/Anxiety 07/26/23
warfarin 2.5 mg tablet 2.5 mg PO Q48H@1800 Blood Clot Prevention/Tx 07/26/23
warfarin 5 mg tablet 5 mg PO Q48H@1800 Blood Clot Prevention/Tx 07/26/23
aspirin 81 mg tablet,delayed release 81 mg PO DAILY 01/28/24
denosumab 60 mg/mL subcutaneous syringe (Prolia) 60 mg SC [id number] 01/28/24
golimumab 12.5 mg/mL intravenous solution (Simponi ARIA) 0 mg IV Q8W 01/28/24
letrozole 2.5 mg tablet 2.5 mg PO DAILY 01/28/24
tramadol 25 mg tablet 25 mg PO TIDPRN PRN moderate pain 01/28/24
Review of Systems
-
History Source: Patient
A 12 point ROS was completed and negative except as noted: Yes
Constitutional: Denies Fever, Fatigue or Chills
EENT: Denies Sore Throat or Runny Nose
Respiratory: Denies Cough or Trouble Breathing
Cardiac: Denies Chest Pain, Diaphoresis, Palpitations or Syncope
Abdomen/GI: Denies Abdominal Pain, Nausea, Vomiting, Diarrhea, Constipated, Bloody Stools or Black Stools
: Denies Dysuria, Frequency, Flank Pain, Incontinence or Difficulty Voiding
Musculoskeletal: Denies Joint Pain or Edema
Skin: Denies Itching or Rash
Neurological: Reports Weakness (Bilateral lower legs left greater than right) and Other (Lower lumbar spine pain reported with standing); Denies Dizzy or Headache
Endocrine: Reports No Symptoms
Hematologic/Lymphatic: Reports No Symptoms
Psych: Reports Calm
Physical Exam
Vital Signs
Vital Signs
Temp Pulse Resp BP Pulse Ox
97.9 F 75 19 176/97 98
01/28/24 10:17 01/28/24 16:45 01/28/24 16:45 01/28/24 15:00 01/28/24 14:00
Physical Exam
General: Comfortable and Conversant; No Pain, Fever or Chills
HEENT: NormoCephalic, Anicteric, Moist mucous membranes, PERRLA, [place] Conjunctivae and No Ptosis
Respiratory: Clear; No Wheezes or Rales
Cardiac: S1/S2; No Murmur, Rub, Gallop or Peripheral Edema
Breast: Other (Large known hard mass left breast, multiple hard masses right breast with known history of breast cancer)
GI: Soft, Non Tender, Non Distended, Normal Bowel Sounds, No Hepatosplenomegaly and Ostomy (Colostomy present)
Rectal: Deferred by Provider
Genito-urinary: Deferred by me
Musculoskeletal: No Clubbing, No Cyanosis, No Edema and Other (Negative straight leg test bilateral legs, bilateral leg weakness left greater than right sensation intact)
Skin: Warm and Dry; No Rash
Neuro: AO x 3, Cranial Nerves Intact and No Sensory Deficits; No Slurred Speech, Facial Droop, Tremors or Sedated
Psych: Calm
Laboratory Results
-
01/28/24 10:40
01/28/24 10:40
Laboratory Results
PT 26.9 Sec (11.4-14.6) H 01/28/24 10:40
INR 2.50 01/28/24 10:40
APTT 41.5 Sec (23.4-35.0) H 01/28/24 10:40
Total Bilirubin 0.4 mg/dl (0.2-1.3) 01/28/24 10:40
AST 28 U/L (14-36) 01/28/24 10:40
ALT 11 U/L (0-35) 01/28/24 10:40
Alkaline Phosphatase 146 U/L (38-126) H 01/28/24 10:40
Troponin I 0.022 ng/ml 01/28/24 10:40
Impression/Plan
-
Impression/plan:
Observation MedSurg
#Acute ambulatory dysfunction with back pain/leg weakness concern for metastatic disease versus fracture
#Compression fracture L2 chronic
#T12 age-indeterminate compression fracture
-MRI thoracic/lumbar spine
-PT/OT/case management for SNF placement
-valium 5 mg po олег, tylenol 1000mg tid олег cont tramadol
-
Rib/CXR/thoracic and lumbar x-ray:
1. Moderate compression fracture of T11 age-indeterminate
2. Chronic moderate compression of fracture of L2
3. No evidence of rib fracture
#Invasive mammary carcinoma left and right breast June 2023
#Ductal carcinoma Right breast
#Estrogen receptor/progesterone receptor positive, HER2 negative
-Patient on letrozole 2.5 mg daily, Simponi IV every [address] [facility]
#Chronic anemia-microcytic/secondary to chemotherapy
Hgb 9.6 prior baseline 10.19 July 2023
#Hypothyroidism
TSH 7.31 will check free T4
Continue current levothyroxine 125 mcg pending free T4
#RA with hand deformities
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
#CVA right frontotemporal parietal cerebral with right MCA stenting
#Antiphospholipid antibody on long-term Coumadin therapy
-Continue Coumadin alternates 2.5 with 5 mg every other day
INR 2.5
-Follow INR
#Anxiety
-Continue mirtazapine 15 mg at bedtime
#Left femur fracture status post intramedullary nailing July 2023
DVT prophylaxis
-Continue current Coumadin
DNR
--- NOTE | 2024-01-28 18:12 | W.PN.UPDATE ---
Update Note
Progress Note Update
For billing purposes only
[2024-01-28 18:48] LABS: Free T4 1.46 ng/dl (0.78-2.19)
[2024-01-28] MEDS: VALIUM 5 MG PO (20:56)
--- NOTE | 2024-01-28 21:00 | PTCARENOTE ---
Pt transferred to 3W from ED via stretcher. Pt was a pullover from stretcher to bed (unable to ambulate), vitals obtained BP elevated (meds given) otherwise all other vitals stable. Pt AAOX3, oriented to room, call li within reach.
[2024-01-28] MEDS: TYLENOL 1000 MG PO (21:42)
[2024-01-28] MEDS: COUMADIN 2.5 MG PO (21:42)
[2024-01-28] MEDS: COLACE 100 MG PO (21:42)
[2024-01-28] MEDS: REMERON 15 MG PO (21:42)
[2024-01-29] MEDS: APRESOLINE 5 MG IV (00:02)
[2024-01-29] MEDS: SYNTHROID 125 MCG PO (05:32)
[2024-01-29 07:35] VITALS: BP 153/93
[2024-01-29 08:09] LABS: % Basophils 0.8 % (0-2); % Eosinophils 0.7 % (0-6); % Immature Granulocytes 0.2 % (0-0.5); % Lymphocytes 20.2 % (20.5-51.1); % Monocytes 3.9 % (1.7-9.3); % Neutrophils 74.2 % (42.2-75.2); Absolute Basophils 0.1 10^3/uL (0-0.2); Absolute Lymphocytes 1.2 10^3/uL (1.2-3.4); Absolute Monocytes 0.2 10^3/uL (0.1-0.6); Absolute Neutrophils 4.6 10^3/uL (1.4-6.5); Hematocrit 33.2 % (37.0-47.0); Hemoglobin 10.6 g/dL (12.0-16.0); INR 2.42; Mean Corp Hgb Conc. 31.9 g/dL (33.0-37.0); Mean Corpuscular Hgb 23.3 pg (27.0-31.0); Mean Platelet Volume 9.1 fL (7.4-10.4); Nucleated Red Blood Cells % 0 %; PT 26.2 Sec (11.4-14.6); Platelet Count 394 10^3/uL (130-400); Red Blood Cell Count 4.55 10^6/uL (4.20-5.40); Red Cell Dist. Width 23.6 % (11.5-14.5); White Blood Cell Count 6.1 10^3/uL (4.8-10.8)
[2024-01-29 08:31] LABS: Blood Urea Nitrogen 18 mg/dl (7-17); Calcium 9.4 mg/dl (8.4-10.2); Carbon Dioxide 25 mmol/L (22-30); Chloride 101 mmol/L (98-107); Estimated Creatinine Clearance 45 ml/min; Glucose 101 mg/dl (70-99); Potassium 3.1 mmol/L (3.5-5.1); Sodium 137 mmol/L (135-145); eGFR > 60.00
[2024-01-29 08:53] LABS: Anisocytosis 1+; Hypochromasia 2+; Normal RBC Morphology No; Ovalocytes 1+; Polychromasia 1+; Target Cells 1+
[2024-01-29] MEDS: TYLENOL 1000 MG PO ×3 (09:41→21:31)
[2024-01-29] MEDS: FEMARA 2.5 MG PO (09:41)
[2024-01-29] MEDS: ASPIR LOW (ENTERIC COATED) 81 MG PO (09:41)
[2024-01-29] MEDS: VALIUM 5 MG PO ×2 (09:41→21:31)
[2024-01-29] MEDS: LIDOCAINE 4% PATCH 1 PATCH TOPICAL (09:41)
--- NOTE | 2024-01-29 11:13 | W.PN.HOSP.TC ---
Today's Communication/Plan
-
Monitor vital signs
see plan
PT/OT
MRI
Continue with pain control
Will need SNF
Replete potassium
Assessment / Plan
Assessment / Plan
General: Comfortable and Conversant; No Pain, Fever or Chills
HEENT: NormoCephalic, Anicteric, Moist mucous membranes
Respiratory: Clear; No Wheezes or Rales
Cardiac: S1/S2; No Murmur, Rub, Gallop or Peripheral Edema
GI: Soft, Non Tender, Non Distended, Normal Bowel Sounds and Ostomy present
Musculoskeletal: No Edema and Other (bilateral leg weakness left greater than right sensation intact)
Neuro: AO x 3, Cranial Nerves Intact and No Sensory Deficits; No Slurred Speech, Facial Droop, Tremors or Sedated
Psych: Calm
Acute ambulatory dysfunction with back pain/leg weakness concern for metastatic disease versus fracture
#Compression fracture L2 chronic
#T12 age-indeterminate compression fracture
-MRI thoracic/lumbar spine
-PT/OT/case management for SNF placement
start Valium and Tylenol, continue with tramadol
no signs of saddle anesthesia
Rib/CXR/thoracic and lumbar x-ray:
1. Moderate compression fracture of T11 age-indeterminate
2. Chronic moderate compression of fracture of L2
3. No evidence of rib fracture
Hypokalemia
Replete
#Invasive mammary carcinoma left and right breast June 2023
#Ductal carcinoma Right breast
#Estrogen receptor/progesterone receptor positive, HER2 negative
-Patient on letrozole 2.5 mg daily, Simponi IV every [address] [facility]
#Chronic anemia-microcytic/secondary to chemotherapy
monitor
#Hypothyroidism
TSH 7.31; normal free t4
Continue current levothyroxine 125 mcg
#RA with hand deformities
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
#CVA right frontotemporal parietal cerebral with right MCA stenting
#Antiphospholipid antibody on long-term Coumadin therapy
-Continue Coumadin alternates 2.5 with 5 mg every other day
INR 2.42
-Follow INR
#Anxiety
-Continue mirtazapine 15 mg at bedtime
#Left femur fracture status post intramedullary nailing July 2023
DVT prophylaxis
-Continue current Coumadin
DNR
Anticipated Discharge: Within 24 hours
Subjective/Interval History
-
Date of Service: January 29, 2024
Pain appears to be improving
Objective Data
-
Labs:
Laboratory Results
01/29/24
07:14
WBC 6.1
Hgb 10.6 L
Hct 33.2 L
Plt Count 394
PT 26.2 H
INR 2.42
Sodium 137
Potassium 3.1 L
Chloride 101
Carbon Dioxide 25
BUN 18 H
Creatinine 0.8
Glucose 101 H
Calcium 9.4
Vital Signs:
Vital Signs
Temp Pulse Resp BP Pulse Ox
97.6 F 90 18 153/93 97
01/29/24 07:35 01/29/24 07:35 01/29/24 07:35 01/29/24 07:35 01/29/24 07:35
I&O
01/28/24 01/29/24 01/30/24
06:59 06:59 06:59
Output Total 400 / 400
Balance -400 / -400
--- NOTE | 2024-01-29 11:45 | CHAP ---
Fadumo was grateful to receive Communion just before being taken to MRI. Emotional and spiritual support provided.
[2024-01-29] MEDS: KCL 40 MEQ PO (13:40)
[2024-01-29 14:39] VITALS: BP 146/95; PULSE 94; O2SAT 100
[2024-01-29 15:45] VITALS: BP 163/87
[2024-01-29] MEDS: COUMADIN 5 MG PO (18:20)
[2024-01-29] MEDS: COLACE 100 MG PO (21:31)
[2024-01-29] MEDS: REMERON 15 MG PO (21:31)
[2024-01-29 22:40] VITALS: BP 160/90
[2024-01-30] MEDS: SYNTHROID 125 MCG PO (05:24)
[2024-01-30 07:30] VITALS: BP 138/69
[2024-01-30 07:30] LABS: % Basophils 0.5 % (0-2); % Eosinophils 4.3 % (0-6); % Immature Granulocytes 0.2 % (0-0.5); % Lymphocytes 28.1 % (20.5-51.1); % Monocytes 6.3 % (1.7-9.3); % Neutrophils 60.6 % (42.2-75.2); Absolute Eosinophils 0.3 10^3/uL (0-0.7); Absolute Lymphocytes 1.8 10^3/uL (1.2-3.4); Absolute Monocytes 0.4 10^3/uL (0.1-0.6); Absolute Neutrophils 3.8 10^3/uL (1.4-6.5); Hematocrit 29.1 % (37.0-47.0); Hemoglobin 9.2 g/dL (12.0-16.0); Mean Corp Hgb Conc. 31.6 g/dL (33.0-37.0); Mean Corpuscular Hgb 22.6 pg (27.0-31.0); Mean Corpuscular Volume 71.5 fL (81.0-99.0); Mean Platelet Volume 9.1 fL (7.4-10.4); Nucleated Red Blood Cells % 0 %; Platelet Count 407 10^3/uL (130-400); Red Blood Cell Count 4.07 10^6/uL (4.20-5.40); Red Cell Dist. Width 23.6 % (11.5-14.5); White Blood Cell Count 6.3 10^3/uL (4.8-10.8)
[2024-01-30 07:47] LABS: INR 2.91; PT 30.3 Sec (11.4-14.6)
[2024-01-30] MEDS: ASPIR LOW (ENTERIC COATED) 81 MG PO (08:26)
[2024-01-30] MEDS: VALIUM 5 MG PO ×2 (08:26→20:16)
[2024-01-30] MEDS: TYLENOL 1000 MG PO ×3 (08:26→21:47)
[2024-01-30] MEDS: LIDOCAINE 4% PATCH 1 PATCH TOPICAL (08:26)
[2024-01-30] MEDS: FEMARA 2.5 MG PO (08:26)
[2024-01-30] MEDS: DECADRON 10 MG IV (09:06)
[2024-01-30 09:08] LABS: Blood Urea Nitrogen 37 mg/dl (7-17); Calcium 9.2 mg/dl (8.4-10.2); Carbon Dioxide 27 mmol/L (22-30); Chloride 104 mmol/L (98-107); Estimated Creatinine Clearance 28 ml/min; Glucose 97 mg/dl (70-99); Potassium 4.3 mmol/L (3.5-5.1); Sodium 137 mmol/L (135-145); eGFR 42.88
--- NOTE | 2024-01-30 09:38 | W.PN.HOSP.TC ---
Today's Communication/Plan
-
maintain on steroids
hospice eval
Assessment / Plan
Assessment / Plan
MRI T spine
There is levoconvex curvature of the thoracic spine. There is extensive metastatic disease within the thoracic spine involving the T3, T6, T7, T8, T10, T11 and T12 vertebral bodies with associated compression fractures of the T6, T7 and T11
vertebral bodies. There is extension into the posterior elements at the T6-T8 levels as well as the T11 level. There is circumferential epidural extension at T6-T7 with associated severe canal stenosis. There is increased signal within the spinal
canal at this level suggestive of compressive myelopathy. There is additional involvement of the head of the left fourth rib.
MRI L Spine
There is T1 hypointense, enhancing lesions within the posterior aspect of the T11, T12, L2, L3 and L5 vertebral bodies, likely metastatic disease. This is most pronounced at the T11 and L5 vertebral bodies. There is a 0.8 x 0.4 cm enhancing focus
within the right subarticular zone at the L4-L5 level suspicious for epidural extension. There is no suspicious leptomeningeal enhancement. Chronic L2 compression deformity with approximately 50% loss of height. Multilevel degenerative disc disease
and facet arthropathy as detailed above.

1. T6-T7 severe canal stenosis with cord compression
Multiple vertebral body involved with metastatic disease
-Patient unable to walk from Tuesday, at baseline had some memory dysfunction although rapidly progressed
-MRI T/L-spine report above with patient having a T6-T7 severe canal stenosis from metastatic disease causing increased signal intensity in spinal cord
-Discussed with patient/family who have declined to get any surgery
-Patient provided IV Decadron 10 mg followed by 4 mg every 6 for maintenance to help with pain/inflammation with metastatic disease
-Continue pain control and will provide further pain medication if needed
-Patient and family have requested to evaluated by hospice in light of advanced malignancy and related complications at this point.
-Oncology evaluated patient as well and in agreement with hospice care plan.
2. ER positive ductal carcinoma of both breasts
-Patient had letrozole therapy
-Patient in general not interested in further treatment of cancer. Oncology have recommended for patient to be transition to hospice.
3. Hypokalemia
-replace PRN
4. Chronic anemia
-microcytic/secondary to chemotherapy
5. Hypothyroidism
-TSH 7.31; normal free t4
C-ontinue current levothyroxine 125 mcg
RA with hand deformities
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
CVA right frontotemporal parietal cerebral with right MCA stenting
Antiphospholipid antibody on long-term Coumadin therapy
Anxiety -Continue mirtazapine 15 mg at bedtime
Left femur fracture status post intramedullary nailing July 2023
History of intraperitoneal bleed/status post ileostomy
DVT prophylaxis-Continue current Coumadin
DNR
Discussed at length patient prognosis and current condition. Patient and family in agreement with initiation of hospice care plan. Hospice has been consulted.
Discussed with oncology and neurosurgery as well.
Total time spent 55-minute
Anticipated Discharge: Within 24 hours
Subjective/Interval History
-
Date of Service: January 30, 2024
seen and examined
Patient somewhat somnolent although waking up on verbal cue
Not complaining any excessive back pain
Objective Data
-
Labs:
Laboratory Results
01/30/24
07:00
WBC 6.3
Hgb 9.2 L
Hct 29.1 L
Plt Count 407 H
PT 30.3 H
INR 2.91
Sodium 137
Potassium 4.3 D
Chloride 104
Carbon Dioxide 27
BUN 37 H
Creatinine 1.3 H
Glucose 97
Calcium 9.2
Vital Signs:
Vital Signs
Temp Pulse Resp BP Pulse Ox
97.8 F 61 16 138/69 99
01/30/24 07:30 01/30/24 07:30 01/30/24 07:30 01/30/24 07:30 01/30/24 07:30
I&O
01/29/24 01/30/24 01/31/24
06:59 06:59 06:59
Intake Total 980 / 980
Output Total 400 / 400 1300 / 1300
Balance -400 / -400 -320 / -320
Review of Systems
-
Respiratory: Reports No Symptoms
Cardiac: Reports No Symptoms
Abdomen/GI: Reports No Symptoms
Physical Exam
-
General: Comfortable, Appears Chronically Ill and Cachectic
HEENT: Negative Oxygen
Respiratory: Clear to Auscultation
Cardiac: Regular Rhythm and S1/S2; Negative Murmur or Rub
GI: Soft, Nontender and Nondistended
Musculoskeletal: No Edema
Neuro: Awake, Alert and Oriented; Negative No Motor Deficits (Left hand contracture/paresis, b/l LE motor strength 4/5)
Psych: Calm
--- NOTE | 2024-01-30 10:29 | CM ---
Reviewed chart. As of yet no facilities have offered a bed. Will f/u with patient and family for more options.
Plan: Case management will continue to follow and assist with discharge planning. Will f/u for alternate SNF options.
--- NOTE | 2024-01-30 11:34 | CON.ONC ---
Impression
Impression
Neglected b/l breast cancer, widely metastatic to bone
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
RA
Hx CVA
APLA on warfarin
Plan
Plan
Pt with neglected metastatic breast cancer, has not wanted treatment and really does not want treatment now.
Without radiation, I see her becoming more symptomatic quickly, and she states she does not want radiation.
Discussed levels of care with pt: active care, best supportive care, hospice.
Upon hearing description of hospice level of care, she stated 'That's what I need.' This decision is consistent with the care decisions that she had been making all along regarding the breast masses and then cancer. Pt appreciates that her wishes
will be respected.
Endeavored to get pt's on the phone to expedite arranging home hospice, unable to contact him on cell or home number.
I have not yet consulted hospice as I was not able to contact .
Thank you for consult.
Patient History
History of Present Illness
73-year-old woman with multiple medical issues including rheumatoid arthritis, history of stroke, antiphospholipid antibody on chronic Coumadin, and hypothyroidism. She has a longstanding history of breast lumps for which she did not seek medical
attention until May 2023. She underwent a biopsy at that time of bilateral breast lumps with all showing low-grade invasive ductal carcinoma, strongly ER positive, HER2 negative. Neoadjuvant therapy was recommended. But shortly after the
diagnosis, she had a bad fall fracturing her left femur and requiring intramedullary nailing in July 2023. Due in part to this event, she did not see medical oncology until her initial visit with Dr. Stevenson on January 17. At that time, she
declined to undergo staging scans and did not want to do in the way of therapy but was willing to start on aromatase inhibitor.
She presented to the [facility] ER on January 27 with complaint of weakness and electric shock type pain down both of her legs. The pain is relieved by lying flat on her back. Since admission here, she underwent thoracic spine x-ray showing
a moderate compression fracture at T11. She went on to MRI of the thoracic and lumbar spines on January 28 which showed extensive involvement of spine with apparent metastatic breast cancer. There was epidural extension at L5 and T6-T7 levels with
associated high-grade canal narrowing.
Patient states pain is currently well-controlled as long as she stays lying flat on her back. Patient voicing desire for no further workup or treatment other than Femara, including radiation.
Past-Medical/Surgical History
PMHx:
RA on Simponi, CVA (in w/ Left sided weakness/hand contractures), HTN, Hypothyroidism, new breast CA diagnosis, hypercholesterolemia, antiphospholipid syndrome on chronic coumadin, L2 compression fracture
PSHx:
Cholecystectomy. Colon resection for bleeding, colostomy to Ileostomy
Social History
Tobacco: Non-smoker
Alcohol: None
Drug: None
Personal:
Living: with family
Patient Medication
�Medication �Instructions �Recorded �Confirmed �Last Taken �Type
docusate sodium 100 mg capsule 100 mg PO HS Constipation 07/26/23 01/28/24 01/27/24 History
(Colace)
levothyroxine 125 mcg tablet 125 mcg PO SUMOWEFRSA@0700 Thyroid 07/26/23 01/28/24 01/27/24 History
mirtazapine 15 mg tablet 15 mg PO HS Mental Health/Anxiety 07/26/23 01/28/24 01/27/24 History
warfarin 2.5 mg tablet 2.5 mg PO Q48H@1800 Blood Clot 07/26/23 01/28/24 01/26/24 History
Prevention/Tx
warfarin 5 mg tablet 5 mg PO Q48H@1800 Blood Clot 07/26/23 01/28/24 01/27/24 History
Prevention/Tx
aspirin 81 mg tablet,delayed 81 mg PO DAILY Blood Clot 01/28/24 01/28/24 01/27/24 History
release Prevention/Tx
denosumab 60 mg/mL subcutaneous 60 mg SC [id number] BONE LOSS 01/28/24 01/28/24 Unknown History
syringe (Prolia)
golimumab 12.5 mg/mL intravenous 0 mg IV Q8W Autoimmune Disorder 01/28/24 01/28/24 Unknown History
solution (Simponi ARIA)
letrozole 2.5 mg tablet 2.5 mg PO DAILY Cancer 01/28/24 01/28/24 01/27/24 History
tramadol 25 mg tablet 25 mg PO TIDPRN PRN moderate pain 01/28/24 01/28/24 01/27/24 History
Active Medications
Generic Name Dose Route Start Last Admin
Trade Name Freq PRN Reason Stop Dose Admin
Acetaminophen 1,000 mg 01/28/24 22:00 01/30/24 08:26
Acetaminophen 500 Mg Tablet PO 02/25/24 21:59 1,000 mg
TID JAYESH Administration
Acetaminophen 650 mg 01/28/24 19:31
Acetaminophen 325 Mg Tablet PO 02/25/24 19:30
Q4HPRN PRN
mild pain/HOPE/temp> 100.4F
Dexamethasone 4 mg 01/30/24 15:00
Dexamethasone 4 Mg Tablet PO 02/27/24 14:59
Q6H JAYESH
Diazepam 5 mg 01/28/24 19:00 01/30/24 08:26
Diazepam 5 Mg Tablet PO 02/25/24 18:59 5 mg
BID JAYESH Administration
Docusate Sodium 100 mg 01/28/24 22:00 01/29/24 21:31
Docusate Sodium 100 Mg Capsule PO 02/25/24 21:59 100 mg
HS JAYESH Administration
Hydralazine HCl 5 mg 01/28/24 23:35 01/29/24 00:02
Hydralazine 20 Mg/Ml Vial IV 02/25/24 23:34 5 mg
Q4HPRN PRN Administration
sbp>170
Letrozole 2.5 mg 01/29/24 08:00 01/30/24 08:26
Letrozole 2.5 Mg (Non-Form) Tablet PO 02/26/24 07:59 2.5 mg
DAILY JAYESH Administration
Levothyroxine Sodium 125 mcg 01/29/24 06:00 01/30/24 05:24
Levothyroxine 125 Mcg Tablet PO 02/26/24 05:59 125 mcg
SuMoWeFrSa@0600 JAYESH Administration
Lidocaine 1 patch 01/29/24 08:00 01/30/24 08:26
Lidocaine 4% Topical Patch TOPICAL 02/26/24 07:59 1 patch
DAILY JAYESH Administration
Protocol
Mirtazapine 15 mg 01/28/24 22:00 01/29/24 21:31
Mirtazapine 15 Mg Regular Release Tablet PO 02/25/24 21:59 15 mg
HS JAYESH Administration
Patch Removal 0 patch 01/29/24 20:00 01/29/24 21:31
Remove Lidocaine Patch REMOVE 02/26/24 19:59 1 patch
DAILY@2000 JAYESH Administration
Sodium Chloride 0 flush 01/28/24 19:00
Sodium Chloride 0.9% (Flush) Syringe IV 02/25/24 18:59
PER PROTOCOL JAYESH
Tramadol HCl 25 mg 01/28/24 19:41
Tramadol Hcl 50 Mg Tablet PO 02/25/24 19:40
TIDPRN PRN
moderate pain
Review of Systems
-
History Source: Patient and Records
Constitutional: Reports No Appetite, Fatigue and Weakness
EENT: Reports No Symptoms
Respiratory: Reports No Symptoms
Cardiac: Reports No Symptoms
GI: Reports No Symptoms
Breast: Reports Mass/Lump
: Reports No Symptoms; Denies Incontinence
Musculoskeletal: Reports Joint Pain, Joint Swelling, Muscle Pain and Muscle Stiffness
Skin: Reports No Symptoms
Neuro: Reports Weakness and Other (neuropathic pain b/l legs)
Endocrine: Reports No Symptoms
Hematologic/Lymphatic: Reports No Symptoms
Allergy / Immunology: Reports No Symptoms
Psych: Reports Depressed and Sad
Physical Exam
-
Awake, alert, frail
Heart tachy regular
Lungs clear
Abd soft, nontender
B/l breast masses
Extrem no cce
RA joint changes in hands
Unable to sit up without pain
Labs
Lab Results
WBC 6.3 10^3/uL (4.8-10.8) 01/30/24 07:00
RBC 4.07 10^6/uL (4.20-5.40) L 01/30/24 07:00
Hgb 9.2 g/dL (12.0-16.0) L 01/30/24 07:00
Hct 29.1 % (37.0-47.0) L 01/30/24 07:00
MCV 71.5 fL (81.0-99.0) L 01/30/24 07:00
MCH 22.6 pg (27.0-31.0) L 01/30/24 07:00
MCHC 31.6 g/dL (33.0-37.0) L 01/30/24 07:00
RDW 23.6 % (11.5-14.5) H 01/30/24 07:00
Plt Count 407 10^3/uL (130-400) H 01/30/24 07:00
MPV 9.1 fL (7.4-10.4) 01/30/24 07:00
Abs Immat Gran (auto) 0.0 10^3/uL (0-0.05) 01/30/24 07:00
Absolute Neuts (auto) 3.8 10^3/uL (1.4-6.5) 01/30/24 07:00
Absolute Lymphs (auto) 1.8 10^3/uL (1.2-3.4) 01/30/24 07:00
Absolute Monos (auto) 0.4 10^3/uL (0.1-0.6) 01/30/24 07:00
Absolute Eos (auto) 0.3 10^3/uL (0-0.7) 01/30/24 07:00
Absolute Basos (auto) 0.0 10^3/uL (0-0.2) 01/30/24 07:00
Immature Gran % 0.2 % (0-0.5) 01/30/24 07:00
Neutrophils % 60.6 % (42.2-75.2) 01/30/24 07:00
Lymphocytes % 28.1 % (20.5-51.1) 01/30/24 07:00
Monocytes % 6.3 % (1.7-9.3) 01/30/24 07:00
Eosinophils % 4.3 % (0-6) 01/30/24 07:00
Basophils % 0.5 % (0-2) 01/30/24 07:00
Creatinine 1.3 mg/dL (0.6-1.0) H 01/30/24 07:00
Vital Signs
Vital Signs
Temp Pulse Resp BP Pulse Ox
97.8 F 61 16 138/69 99
01/30/24 07:30 01/30/24 07:30 01/30/24 07:30 01/30/24 07:30 01/30/24 07:30
[2024-01-30 13:38] VITALS: BMI 15.8
--- NOTE | 2024-01-30 14:02 | CM ---
Received referral for hospice. Met with patient and family (two daughters and spouse) who were at patient's bedside. Patient's daughters stated that patient's [place] is [place] and therefore deferred to them. Patient's daughter's, Ivette and and La
stated that they would like for patient to transfer to an [facility] Hospice. They selected [facility] as it is the closest to where patient's spouse lives.
Spoke with Tammie in admissions at [facility] who stated that patient needs to first be skilled through insurance, and then they can work on getting a Medicaid application together. If she does not go through the insurance, she will have to pay,
14,00.30 for the first month and this will be a recurring monthly expense.
Spoke with attending who stated that patient would be safe for therapy.
Spoke with PT to update and patient will get an eval.
Placed a call to patient's daughter, La, and she stated that she feels that it would be good for patient to get a little rehab initially and then they may transition to Hospice if patient not making much progress.
Referral sent to [facility].
Will send clinical to [facility] for hopeful auth.
Plan: Case management will continue to follow and assist with discharge planning. SNF when stable contigent on auth.
[2024-01-30] MEDS: DECADRON 4 MG PO ×2 (15:03→20:16)
[2024-01-30] MEDS: ULTRAM 25 MG PO (15:04)
[2024-01-30 15:57] VITALS: BP 168/89; PULSE 91; O2SAT 97
[2024-01-30 15:59] VITALS: BP 168/89; PULSE 93; O2SAT 97
[2024-01-30 16:00] VITALS: BP 168/89
[2024-01-30] MEDS: REMERON 15 MG PO (21:47)
[2024-01-30] MEDS: COLACE 100 MG PO (21:47)
[2024-01-30 23:11] VITALS: BP 160/93
[2024-01-31] MEDS: ULTRAM 25 MG PO (03:16)
[2024-01-31] MEDS: DECADRON 4 MG PO ×4 (03:16→19:48)
[2024-01-31 07:00] VITALS: BP 177/90
[2024-01-31 07:05] LABS: INR 2.85; PT 29.9 Sec (11.4-14.6)
[2024-01-31] MEDS: APRESOLINE 5 MG IV (08:10)
[2024-01-31] MEDS: VALIUM 5 MG PO ×2 (08:10→19:46)
[2024-01-31] MEDS: LIDOCAINE 4% PATCH 1 PATCH TOPICAL (08:10)
[2024-01-31] MEDS: TYLENOL 1000 MG PO ×3 (08:10→22:27)
[2024-01-31] MEDS: FEMARA 2.5 MG PO (08:11)
--- NOTE | 2024-01-31 10:28 | W.PN.HOSP.TC ---
Today's Communication/Plan
-
Discharge planning for SNF rehab
Assessment / Plan
Assessment / Plan
MRI T spine
There is levoconvex curvature of the thoracic spine. There is extensive metastatic disease within the thoracic spine involving the T3, T6, T7, T8, T10, T11 and T12 vertebral bodies with associated compression fractures of the T6, T7 and T11
vertebral bodies. There is extension into the posterior elements at the T6-T8 levels as well as the T11 level. There is circumferential epidural extension at T6-T7 with associated severe canal stenosis. There is increased signal within the spinal
canal at this level suggestive of compressive myelopathy. There is additional involvement of the head of the left fourth rib.
MRI L Spine
There is T1 hypointense, enhancing lesions within the posterior aspect of the T11, T12, L2, L3 and L5 vertebral bodies, likely metastatic disease. This is most pronounced at the T11 and L5 vertebral bodies. There is a 0.8 x 0.4 cm enhancing focus
within the right subarticular zone at the L4-L5 level suspicious for epidural extension. There is no suspicious leptomeningeal enhancement. Chronic L2 compression deformity with approximately 50% loss of height. Multilevel degenerative disc disease
and facet arthropathy as detailed above.

1. T6-T7 severe canal stenosis with cord compression
Multiple vertebral body involved with metastatic disease
-Patient unable to walk from Tuesday, at baseline had some memory dysfunction although rapidly progressed
-MRI T/L-spine report above with patient having a T6-T7 severe canal stenosis from metastatic disease causing increased signal intensity in spinal cord
-Discussed with patient/family who have declined to get any surgery
-Patient provided IV Decadron 10 mg followed by 4 mg every 6 for maintenance to help with pain/inflammation with metastatic disease
-Continue pain control and will provide further pain medication if needed
-Patient and family have requested to evaluated by hospice in light of advanced malignancy and related complications at this point.
-Oncology evaluated patient as well and in agreement with hospice care plan.
2. ER positive ductal carcinoma of both breasts
-Patient had letrozole therapy
-Patient in general not interested in further treatment of cancer. Oncology have recommended for patient to be transition to hospice.
3. Hypokalemia
-replace PRN
4. Chronic anemia
-microcytic/secondary to chemotherapy
5. Hypothyroidism
-TSH 7.31; normal free t4
-continue current levothyroxine 125 mcg
RA with hand deformities
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
CVA right frontotemporal parietal cerebral with right MCA stenting
Antiphospholipid antibody on long-term Coumadin therapy
Anxiety -Continue mirtazapine 15 mg at bedtime
Left femur fracture status post intramedullary nailing July 2023
History of intraperitoneal bleed/status post ileostomy
DVT prophylaxis-Continue current Coumadin
DNR
01/29 Discussed at length patient prognosis and current condition. Patient and family in agreement with initiation of hospice care plan. Hospice has been consulted.
Discussed with oncology and neurosurgery as well.
[facility] and if does not improve plan to be transition to hospice
Anticipated Discharge: Within 24 hours
Subjective/Interval History
-
Date of Service: January 31, 2024
Patient complaining some back pain
no change in sensation in legs/no new weakness
No other acute issues reported overnight
Objective Data
-
Labs:
Laboratory Results
01/31/24
06:32
PT 29.9 H
INR 2.85
Vital Signs:
Vital Signs
Temp Pulse Resp BP Pulse Ox
97.4 F 70 12 177/90 100
01/31/24 07:00 01/31/24 07:00 01/31/24 07:00 01/31/24 07:00 01/31/24 07:00
I&O
01/30/24 01/31/24 02/01/24
06:59 06:59 06:59
Intake Total 980 / 980 700 / 700
Output Total 1300 / 1300 1100 / 1100
Balance -320 / -320 -400 / -400
Review of Systems
-
Respiratory: Reports No Symptoms
Cardiac: Reports No Symptoms
Abdomen/GI: Reports No Symptoms
Physical Exam
-
General: Comfortable, Appears Chronically Ill and Cachectic
HEENT: Negative Oxygen
Respiratory: Clear to Auscultation
Cardiac: Regular Rhythm and S1/S2; Negative Murmur or Rub
GI: Soft, Nontender and Nondistended
Musculoskeletal: No Edema
Neuro: Awake, Alert and Oriented; Negative No Motor Deficits (Left hand contracture/paresis, b/l LE motor strength 4/5)
Psych: Calm
[2024-01-31 10:36] VITALS: BP 141/80
--- NOTE | 2024-01-31 13:49 | CM ---
Reviewed chart, spoke with Adelita at [facility] who confirmed bed availability for patient. NPI # For facility [id number] for attending MD Dr. Aguilar [id number].
Placed a call to [facility] and spoke with a patient account representative named, Mahogany, who took preliminary information and provided ref # [id number]. All clinical faxed to, .
Will await determination.
Plan: Case management will continue to follow and assist with discharge planning/transfer over to [facility] for SNF and ultimately hospice.
[2024-01-31 15:00] VITALS: BP 145/77
[2024-01-31] MEDS: COLACE 100 MG PO (19:47)
[2024-01-31] MEDS: REMERON 15 MG PO (22:27)
[2024-01-31 23:46] VITALS: BP 184/88
[2024-02-01] MEDS: DECADRON 4 MG PO ×3 (04:29→15:00)
--- NOTE | 2024-02-01 05:07 | DOWNTIME ---
There was a [facility] Downtime on 02/01/2024 from 0100 to 02/01/2024 at 0252. Downtime documentation of patient's care, including medication administrations, has been reconciled in the electronic record per guidelines. Refer to the
patient's paper chart under the miscellaneous tab to see printed paper medication records and downtime forms.
[2024-02-01] MEDS: SYNTHROID 125 MCG PO (06:34)
[2024-02-01 07:00] VITALS: BP 168/94
[2024-02-01] MEDS: TYLENOL 1000 MG PO ×2 (09:09→15:00)
[2024-02-01] MEDS: PROCARDIA XL (EXTENDED RELEASE) 30 MG PO (09:10)
[2024-02-01] MEDS: VALIUM 5 MG PO (09:10)
[2024-02-01] MEDS: LIDOCAINE 4% PATCH 1 PATCH TOPICAL (09:10)
[2024-02-01] MEDS: FEMARA 2.5 MG PO (09:10)
--- NOTE | 2024-02-01 10:49 | CM ---
Addendum entered by KY Gan 02/01/24 12:56:
Received transportation time from [facility] nursing unit clerk, 15:30. Family updated and agreeable. Beulah from [facility] updated and has no concerns.
Addendum entered by KY Gan 02/01/24 11:15:
Beulah from [facility] called and confirmed that there is a bed for patient.
Report [phone] and fax [phone]
Will complete medical necessity and transfer sheet as well as update RN.
Original Note:
Received return call from an [employer] sales representative uniforms named, Terrie, who stated that patient has been approved for 13 days, skilled Auth # [id number]. All clinical should be faxed to, .
Placed a call to Beulah in admissions at [facility] to confirm bed availability and relay auth#.
Spoke with Beulah who stated that she will confirm bed availability for patient and return call.
Plan: Case management will continue to follow and assist with discharge planning. Hopeful transfer to [facility] today pending bed availability.
[2024-02-01 12:44] VITALS: BP 136/66
--- NOTE | 2024-02-01 12:55 | W.PN.HOSP.TC ---
Today's Communication/Plan
-
d/c to SNF rehab
Assessment / Plan
Assessment / Plan
MRI T spine
There is levoconvex curvature of the thoracic spine. There is extensive metastatic disease within the thoracic spine involving the T3, T6, T7, T8, T10, T11 and T12 vertebral bodies with associated compression fractures of the T6, T7 and T11
vertebral bodies. There is extension into the posterior elements at the T6-T8 levels as well as the T11 level. There is circumferential epidural extension at T6-T7 with associated severe canal stenosis. There is increased signal within the spinal
canal at this level suggestive of compressive myelopathy. There is additional involvement of the head of the left fourth rib.
MRI L Spine
There is T1 hypointense, enhancing lesions within the posterior aspect of the T11, T12, L2, L3 and L5 vertebral bodies, likely metastatic disease. This is most pronounced at the T11 and L5 vertebral bodies. There is a 0.8 x 0.4 cm enhancing focus
within the right subarticular zone at the L4-L5 level suspicious for epidural extension. There is no suspicious leptomeningeal enhancement. Chronic L2 compression deformity with approximately 50% loss of height. Multilevel degenerative disc disease
and facet arthropathy as detailed above.

1. T6-T7 severe canal stenosis with cord compression
Multiple vertebral body involved with metastatic disease
-Patient unable to walk from Tuesday, at baseline had some memory dysfunction although rapidly progressed
-MRI T/L-spine report above with patient having a T6-T7 severe canal stenosis from metastatic disease causing increased signal intensity in spinal cord
-Discussed with patient/family who have declined to get any surgery
-Patient provided IV Decadron 10 mg followed by 4 mg every 6 for maintenance to help with pain/inflammation with metastatic disease
-Continue pain control and will provide further pain medication if needed
-Patient and family have requested to evaluated by hospice in light of advanced malignancy and related complications at this point.
-Oncology evaluated patient as well and in agreement with hospice care plan.
2. ER positive ductal carcinoma of both breasts
-Patient had letrozole therapy
-Patient in general not interested in further treatment of cancer. Oncology have recommended for patient to be transition to hospice.
3. Hypokalemia
-replace PRN
4. Chronic anemia
-microcytic/secondary to chemotherapy
5. Hypothyroidism
-TSH 7.31; normal free t4
-continue current levothyroxine 125 mcg
RA with hand deformities
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
CVA right frontotemporal parietal cerebral with right MCA stenting
Antiphospholipid antibody on long-term Coumadin therapy
Anxiety -Continue mirtazapine 15 mg at bedtime
Left femur fracture status post intramedullary nailing July 2023
History of intraperitoneal bleed/status post ileostomy
DVT prophylaxis-Continue current Coumadin
DNR
01/29 Discussed at length patient prognosis and current condition. Patient and family in agreement with initiation of hospice care plan. Hospice has been consulted.
Discussed with oncology and neurosurgery as well.
Patient being discharged to [facility] facility with plan for transitioning to hospice in next 1 or 2 weeks
Anticipated Discharge: Today
Subjective/Interval History
-
Date of Service: February 01, 2024
Denies of having any pain overnight
Did not require to take any tramadol, using Tylenol only for last 48 hours
No other complaints
Objective Data
-
Vital Signs:
Vital Signs
Temp Pulse Resp BP Pulse Ox
97.5 F 96 20 136/66 94
02/01/24 07:00 02/01/24 12:44 02/01/24 12:44 02/01/24 12:44 02/01/24 09:33
I&O
01/31/24 02/01/24 02/02/24
06:59 06:59 06:59
Intake Total 700 / 700
Output Total 1100 / 1100 125 / 125
Balance -400 / -400 -125 / -125
Review of Systems
-
Respiratory: Reports No Symptoms
Cardiac: Reports No Symptoms
Abdomen/GI: Reports No Symptoms
Physical Exam
-
General: Comfortable, Appears Chronically Ill and Cachectic
HEENT: Negative Oxygen
GI: Nondistended
Musculoskeletal: No Edema
Neuro: Awake, Alert and Oriented; Negative No Motor Deficits (Left hand contracture/paresis, b/l LE motor strength 4/5)
Psych: Calm
[2024-02-01 15:20] VITALS: BP 139/75
--- NOTE | 2024-02-02 07:58 | W.DCSUMMARY ---
Discharge Summary
Discharge Data
Date of Admission: 01/28/24
Date of Discharge: 02/01/24
-
Pending Results: No
Hospital Course
Discharging Physician : Dr Zion Esparza
Disposition : SNF rehab
Primary care physician : Dr Henrique Johnson
Principal Discharge diagnosis :
T6-T7 severe canal stenosis with cord compression
Multiple vertebral body involved with metastatic disease
Metastatic estrogen positive ductal carcinoma of both breast
Chronic Discharge diagnosis :
Chronic anemia
Hypothyroidism
Rheumatoid arthritis with deformities
History of stroke
Antiphospholipid antibody syndrome on Coumadin therapy
Anxiety
Left arm fracture status post intramedullary nailing
History of intraperitoneal bleed
History of ileostomy formation
Hospital Course :
Patient is a 73-year-old female with above-mentioned past medical history came to ER for having worsening back pain and significant lower extremity weakness and inability to walk. Patient was having back pain for some time although from few days
before ER visit patient noticed having difficult time walking. In ER patient was evaluated and was planned to be placed to custodial facility for rehab. Thoracic/lumbar x-ray showing moderate compression fracture of T11/T12 vertebra. With
patient known history of untreated metastatic breast cancer there was concern of possible pathological fracture. A follow-up MRI T/L spine showing diffuse metastatic vertebral body disease with most significant finding at T6-T7 level causing severe
spinal canal stenosis and associated cord compression. There was signal within the spinal cord suggestive of compressive myelopathy. Findings were discussed with patient and family emergently and different intervention plan including surgery were
discussed. Patient and family opted for not to do any aggressive measure and switch patient to hospice care. Patient was started on IV Decadron to help with swelling and pain simultaneously. Patient was discharged to custodial facility
where patient is planned to be transition to hospice in 1 to 2 weeks.
Important imaging findings :
None
Procedure findings :
None
Discharge Plan
-
Patient Disposition: Home (Routine Discharge)
Discharge Diagnosis/Procedures: Metastatic breast cancer causing vertebral stenosis, cord compression, A
Condition: Fair
Diet: Regular
Activity: As tolerated
Driving Restrictions: No driving
Bathing Restrictions: OK to Shower
Referrals:
Henrique Johnson MD [Family Provider] - in one week
Prescriptions:
New
nifedipine 30 mg Tablet Extended Release
30 mg PO BID Qty: 30 0RF
acetaminophen [Tylenol Extra Strength] 500 mg Tablet
1,000 mg PO TID Qty: 30 0RF
dexamethasone 4 mg Tablet
4 mg PO Q6H Qty: 30 0RF
diazepam [Valium] 5 mg tablet
5 mg PO BID PRN (Reason: spasm) Qty: 6 0RF
tramadol 50 mg tablet
50 mg PO Q8H PRN (Reason: Sev pain) Qty: 14 0RF
Rx Instructions:
Take half tablet for moderate pain
Continued
docusate sodium [Colace] 100 mg Capsule
100 mg PO HS
mirtazapine 15 mg Tablet
15 mg PO HS
Discontinued
warfarin 2.5 mg Tablet
2.5 mg PO Q48H@1800
levothyroxine 125 mcg Tablet
125 mcg PO SUMOWEFRSA@0700
warfarin 5 mg Tablet
5 mg PO Q48H@1800
Patient Comments:
01/28/24-spouse informed me about alternating 5mg and 2.5mg every other day and last at home INR about 2 weeks.
letrozole 2.5 mg Tablet
2.5 mg PO DAILY
Prolia 60 mg/mL Syringe
60 mg SC [id number]
Simponi ARIA 12.5 mg/mL Solution
0 mg IV Q8W
tramadol 25 mg Tablet
25 mg PO TIDPRN PRN (Reason: moderate pain)
aspirin 81 mg Tablet,Delayed Release (Dr/Ec)
81 mg PO DAILY
Discharge Orders:
Discharge Patient (As Directed); Ordered 02/01/24
Ordered By: Zion Esparza
Discharge Date and Time
Discharge Date/Time: 02/01/24 15:25
Print Language: KAZAKH
== END 2024-02-01 15:25 ==
LOC: 3 WEST ACU 18:17
PROVIDERS: Clinical Nurse Specialist Family Health; ADMITTING PHYSICIAN Internal Medicine; ATTENDING PHYSICIAN Hospitalist; CONSULT PHYSICIAN Internal Medicine Hematology & Oncology; EMERGENCY PHYSICIAN Emergency Medicine; FAMILY PHYSICIAN Family Medicine
DX: M48.04 Spinal stenosis, thoracic region (principal); M48.061 Spinal stenosis, lumbar region without neurogenic claudication; M48.54XA Collapsed vertebra, not elsewhere classified, thoracic region, initial encounter for fracture; M48.56XA Collapsed vertebra, not elsewhere classified, lumbar region, initial encounter for fracture; R53.1 Weakness; I10 Essential (primary) hypertension; E78.00 Pure hypercholesterolemia, unspecified; E03.9 Hypothyroidism, unspecified; I69.354 Hemiplegia and hemiparesis following cerebral infarction affecting left non-dominant side; M79.605 Pain in left leg; C50.919 Malignant neoplasm of unspecified site of unspecified female breast; M79.604 Pain in right leg; M06.9 Rheumatoid arthritis, unspecified; M51.04 Intervertebral disc disorders with myelopathy, thoracic region; D68.61 Antiphospholipid syndrome; R26.2 Difficulty in walking, not elsewhere classified; D50.9 Iron deficiency anemia, unspecified; E87.6 Hypokalemia; R07.81 Pleurodynia; F41.9 Anxiety disorder, unspecified; C79.51 Secondary malignant neoplasm of bone; Z79.82 Long term (current) use of aspirin; Z17.0 Estrogen receptor positive status [ER+]; Z79.01 Long term (current) use of anticoagulants; Z90.49 Acquired absence of other specified parts of digestive tract; Z66 Do not resuscitate; Z79.811 Long term (current) use of aromatase inhibitors
CPT/HCPCS: 71111; 72072; 72110; 72157; 72158; 80048; 80053; 83735; 84439; 84443; 84484; 85025; 85027; 85610; 85730; 93005; 96360; 97166; 97530; 97535; 99285; A9575; G0378